=== PATIENT | female | born 1950 | race African-American/Black ===

== ENCOUNTER 2016-08-24 08:10 | Inpatient (IN) | payer OTHER ==
[~2016-08-24] VITALS: Ht 160 cm; Wt 59.9 kg
[~2016-08-24 08:10] MED LIST: AMLO5TAB4; FLUT1DIS3 INH; FURO-151 PO; IBUP-1509 PO; LOSA50TA20 PO; METFORMIN PO; MONT10TA21 PO; QUET100T PO
[2016-08-24] MEDS ORDERED: METHYLPREDNISOLONE SOD SUCC 125 MG/2 ML VIAL IV STA (08:29)
[2016-08-24] MEDS ORDERED: IPRATROPIUM BROMIDE (0.02%) 0.5MG/2.5ML NEB HHN STA (08:29)
[2016-08-24] MEDS ORDERED: ALBUTEROL (0.083%) 2.5MG/3ML NEB HHN STA ×2 (08:29→11:13)
[2016-08-24 08:44] LABS: BASOPHILS % 0.9 % (0.0-2.0); DIFFERENTIAL COMMENT 0; EOSINOPHILS % 3.7 % (0.0-5.0); HEMATOCRIT. 39.1 % (36.0-48.0); HEMOGLOBIN. 12.6 g/dL (12.0-16.0); LYMPHOCYTES % 31.5 % (20.0-50.0); MEAN CORPUSCULAR HEMOGLOBIN 28.3 pg (28.0-32.0); MEAN CORPUSCULAR HGB CONC 32.2 g/dL (31.0-37.0); MEAN CORPUSCULAR VOLUME 88.1 fL (81.0-99.0); MEAN PLATELET VOLUME 9.4 fl (7.4-10.4); MONOCYTES % 9.8 % (2.0-8.0); NEUTROPHILS % 54.1 % (40.0-76.0); PLATELET 244 x1000/uL (130-400); RED BLOOD CELL COUNT 4.44 mill/uL (4.2-5.4); RED CELL DISTRIBUTION WIDTH 14.7 % (11.6-14.6); WHITE BLOOD COUNT 3.5 x1000/uL (4.5-11.0)
[2016-08-24 08:51] LABS: INR 1.1; PROTHROMBIN TIME 11.8 sec
[2016-08-24 08:59] LABS: ALANINE AMINOTRANSFERASE 15 IU/L (13-61); ALBUMIN 3.3 g/dL (3.4-5.0); ANION GAP 12; CALCIUM 9.2 mg/dL (8.5-10.1); CARBON DIOXIDE 27 mEq/L (21-32); CHLORIDE 109 mEq/L (98-107); INDEX HEMOLYSI 1 (1-3); INDEX ICTERIC 1 (1-4); INDEX LIPEMIC 1 (1-3); NT PRO B-TYPE NATRIURETIC PEP 720 pg/mL (5-125); TROPONIN I < 0.02 ng/mL (0.00-0.04); UREA NITROGEN BLOOD 14 mg/dL (7-21); eGFR 55 mL/min (>60)
[2016-08-24 10:58] LABS: CLARITY URINE CLEAR (CLEAR); COLOR URINE YELLOW (YELLOW); GLUCOSE URINE NEGATIVE (NEGATIVE); KETONES URINE TRACE (NEGATIVE); LEUKOCYTE ESTERASE URINE TRACE (NEGATIVE); NITRITE URINE NEGATIVE (NEGATIVE); OCCULT BLOOD URINE NEGATIVE (NEGATIVE); PROTEIN URINE 1+ (NEGATIVE); SPECIFIC GRAVITY URINE 1.017 (1.005-1.030)
[2016-08-24 11:14] LABS: BACTERIA URINE TRACE; SQUAMOUS EPITHELIAL CELL URINE 1+ /lpf (RARE/1+)
[2016-08-24 11:15] LABS: MUCUS URINE 1+ /lpf (< = 2+); RBC URINE 0-2 /hpf (0-2)
[2016-08-24 12:00] VITALS: BP 148/80
[2016-08-24] MEDS ORDERED: CLONIDINE 0.1MG TABLET PO PRN (12:15)
[2016-08-24] MEDS ORDERED: DEXTROSE 50% WATER 50ML SYRINGE IV PRN (14:30)
[2016-08-24] MEDS ORDERED: LORAZEPAM 0.5MG TABLET PO PRN (15:00)
[2016-08-24] MEDS ORDERED: DOCUSATE SODIUM 100MG CAPSULE PO PRN (15:00)
[2016-08-24] MEDS ORDERED: MORPHINE SULFATE 2 MG/ML CPJ (NOT FOR IM USE) IV PRN (15:00)
[2016-08-24] MEDS ORDERED: ONDANSETRON HCL 4MG/2ML VIAL IV PRN (15:00)
[2016-08-24] MEDS ORDERED: MAGNESIUM/ALUMINUM HYDROXIDE/SIMETHICONE 30ML UDC PO PRN (15:00)
[2016-08-24] MEDS ORDERED: NA PHOS,M-B/NA PHOS,DI-BA ENEMA 118ML PR PRN (15:00)
[2016-08-24] MEDS ORDERED: IPRATROPIUM/ALBUTEROL 0.5-3(2.5)MG/3ML NEB INH PRN (15:00)
[2016-08-24] MEDS: BLOOD SUGAR DIAGNOSTIC STRIP TEST SCH ×3 (15:12→21:19)
[2016-08-24 15:13] LABS: CREATINE KINASE 86 IU/L (26-192); INDEX HEMOLYSI 1 (1-3); TROPONIN I < 0.02 ng/mL (0.00-0.04)
[2016-08-24] MEDS: FUROSEMIDE 40MG/4ML VIAL IV SCH (15:24)
[2016-08-24] MEDS: METHYLPREDNISOLONE SOD SUCC 40 MG/ML VIAL IV SCH ×2 (15:24→21:07)
[2016-08-24] MEDS: AMLODIPINE 5MG TABLET PO SCH (15:24)
[2016-08-24] MEDS: LOSARTAN POTASSIUM 50 MG TABLET PO SCH (15:25)
[2016-08-24] MEDS: INSULIN LISPRO 100 UNITS/ML SUBCUT SCH ×3 (15:26→21:19)
[2016-08-24 16:00] VITALS: BP 140/93
[2016-08-24 17:01] LABS: CLARITY URINE CLEAR (CLEAR); COLOR URINE YELLOW (YELLOW); GLUCOSE URINE 2+ (NEGATIVE); KETONES URINE NEGATIVE (NEGATIVE); LEUKOCYTE ESTERASE URINE NEGATIVE (NEGATIVE); NITRITE URINE NEGATIVE (NEGATIVE); OCCULT BLOOD URINE NEGATIVE (NEGATIVE); PROTEIN URINE 1+ (NEGATIVE); SPECIFIC GRAVITY URINE 1.023 (1.005-1.030); UROBILINOGEN URINE 0.2 E.U./dL (0.2-1.0)
[2016-08-24 17:03] LABS: BACTERIA URINE NONE SEEN; CALCIUM PHOSPHATE CRYSTALS UR NONE SEEN /lpf; RBC URINE NONE SEEN /hpf (0-2); SQUAMOUS EPITHELIAL CELL URINE 1+ /lpf (RARE/1+); WAXY CASTS URINE NONE SEEN /lpf; WBC URINE NONE SEEN /hpf (0-2); YEAST URINE NONE SEEN
[2016-08-24 17:16] LABS: *AMPHETAMINES SCREEN URINE NEGATIVE (NEGATIVE); *BARBITURATES SCREEN URINE NEGATIVE (NEGATIVE); *BENZODIAZEPINES SCREEN URINE NEGATIVE (NEGATIVE); *COCAINE SCREEN URINE PRESUMTIVE POSITIVE (NEGATIVE); CANNABINOID URINE SCREEN PRESUMTIVE POSITIVE (NEGATIVE); ECSTASY MDMA SCREEN URINE NEGATIVE (NEGATIVE); METHADONE URINE SCREEN NEGATIVE (NEGATIVE); OPIATES URINE SCREEN NEGATIVE (NEGATIVE); PHENCYCLIDINE URINE SCREEN NEGATIVE (NEGATIVE)
[2016-08-24 20:00] VITALS: BP 137/94
[2016-08-24] MEDS: IPRATROPIUM/ALBUTEROL 0.5-3(2.5)MG/3ML NEB INH SCH (20:24)
[2016-08-24] MEDS: MONTELUKAST SODIUM 10MG TABLET PO SCH (21:07)
[2016-08-24] MEDS: QUETIAPINE FUMARATE 100MG TABLET PO SCH (21:07)
[2016-08-24] MEDS: DIPHENHYDRAMINE 50MG/ML VIAL IV PRN (21:18)
[2016-08-24 23:22] LABS: CREATINE KINASE 83 IU/L (26-192); INDEX HEMOLYSI 1 (1-3); TROPONIN I < 0.02 ng/mL (0.00-0.04)
[2016-08-25] VITALS: BP 139/93
[2016-08-25] MEDS: IPRATROPIUM/ALBUTEROL 0.5-3(2.5)MG/3ML NEB INH SCH ×7 (00:32→20:01)
[2016-08-25 04:00] VITALS: BP 153/94
[2016-08-25] MEDS: METHYLPREDNISOLONE SOD SUCC 40 MG/ML VIAL IV SCH ×3 (06:00→22:20)
[2016-08-25] MEDS: BLOOD SUGAR DIAGNOSTIC STRIP TEST SCH ×4 (06:08→21:36)
[2016-08-25 06:48] LABS: BASOPHILS % 0.1 % (0.0-2.0); HEMATOCRIT. 34.2 % (36.0-48.0); HEMOGLOBIN. 11.1 g/dL (12.0-16.0); LYMPHOCYTES % 8.8 % (20.0-50.0); MEAN CORPUSCULAR HEMOGLOBIN 28.5 pg (28.0-32.0); MEAN CORPUSCULAR HGB CONC 32.5 g/dL (31.0-37.0); MEAN CORPUSCULAR VOLUME 87.6 fL (81.0-99.0); MEAN PLATELET VOLUME 9.7 fl (7.4-10.4); MONOCYTES % 5.2 % (2.0-8.0); NEUTROPHILS % 85.9 % (40.0-76.0); PLATELET 229 x1000/uL (130-400); RED BLOOD CELL COUNT 3.91 mill/uL (4.2-5.4)
[2016-08-25 07:46] LABS: ALANINE AMINOTRANSFERASE 15 IU/L (13-61); ANION GAP 11; CALCIUM 8.7 mg/dL (8.5-10.1); CARBON DIOXIDE 26 mEq/L (21-32); CHLORIDE 107 mEq/L (98-107); HDL CHOLESTEROL 99 mg/dL (40-59); INDEX HEMOLYSI 1 (1-3); INDEX ICTERIC 1 (1-4); INDEX LIPEMIC 1 (1-3); LDL CHOLESTEROL 56 mg/dL (5-100); T4 FREE 0.97 ng/dL (0.76-1.46); TRIGLYCERIDE 35 mg/dL (0-150); UREA NITROGEN BLOOD 26 mg/dL (7-21); eGFR 50 mL/min (>60)
[2016-08-25 07:48] LABS: T3 FREE 1.88 pg/ml (2.18-3.98)
[2016-08-25 08:00] VITALS: BP 145/104
[2016-08-25] MEDS: FUROSEMIDE 40MG/4ML VIAL IV SCH (08:48)
[2016-08-25] MEDS: LOSARTAN POTASSIUM 50 MG TABLET PO SCH (08:48)
[2016-08-25] MEDS: AMLODIPINE 5MG TABLET PO SCH (08:48)
[2016-08-25 12:00] VITALS: BP 134/84
[2016-08-25] MEDS: INSULIN LISPRO 100 UNITS/ML SUBCUT SCH ×3 (12:34→21:00)
[2016-08-25 13:14] LABS: BG BASE EXCESS 0.7 mmol/L (-2.0-2.0); BG CARBOXYHEMOGLOBIN 0.3 % (0.5-1.5); BG DEOXYHEMOGLOBIN 4.6 % (0.0-5.0); BG FRACTION INSPIRED OXYGEN 21; BG HCO3 ACT 24.7 mmol/L (22.0-26.0); BG METHEMOGLOBIN 0.3 % (0.0-1.5); BG OXYGEN SATURATION 95.4 % (92.0-98.5); BG OXYHEMOGLOBIN 94.8 % (94.0-97.0); BG PCO2 37.4 mmHg (35.0-45.0); BG PH 7.438 (7.350-7.450); BG PO2 76.5 mmHg (75.0-100.0); BG SAMPLE SITE RIGHT BRACHIAL; BG TOTAL HEMOGLOBIN 12.3 g/dL (12.0-18.0); BG VENT MODE ROOM AIR
[2016-08-25 16:00] VITALS: BP 142/91
[2016-08-25 20:00] VITALS: BP 158/91
[2016-08-25] MEDS: BUDESONIDE 0.5MG/2ML NEB HHN SCH (20:01)
[2016-08-25] MEDS: QUETIAPINE FUMARATE 100MG TABLET PO SCH (21:33)
[2016-08-25] MEDS: MONTELUKAST SODIUM 10MG TABLET PO SCH (21:33)
[2016-08-25] MEDS: DIPHENHYDRAMINE 50MG/ML VIAL IV PRN (22:20)
[2016-08-26] VITALS: BP 146/93
[2016-08-26] MEDS: IPRATROPIUM/ALBUTEROL 0.5-3(2.5)MG/3ML NEB INH SCH ×6 (00:24→21:12)
[2016-08-26 03:59] VITALS: BP 153/103
[2016-08-26] MEDS: BUDESONIDE 0.5MG/2ML NEB HHN SCH ×2 (06:00→21:13)
[2016-08-26] MEDS: METHYLPREDNISOLONE SOD SUCC 40 MG/ML VIAL IV SCH ×3 (06:20→22:24)
[2016-08-26] MEDS: BLOOD SUGAR DIAGNOSTIC STRIP TEST SCH ×4 (06:41→20:51)
[2016-08-26] MEDS: INSULIN LISPRO 100 UNITS/ML SUBCUT SCH ×4 (06:41→20:57)
[2016-08-26 08:00] VITALS: BP 145/94
[2016-08-26] MEDS: FUROSEMIDE 40MG/4ML VIAL IV SCH (08:48)
[2016-08-26] MEDS: LOSARTAN POTASSIUM 50 MG TABLET PO SCH ×2 (08:49→20:51)
[2016-08-26] MEDS: AMLODIPINE 5MG TABLET PO SCH (08:49)
[2016-08-26 12:00] VITALS: BP 131/89
[2016-08-26 16:00] VITALS: BP 141/94
[2016-08-26 20:00] VITALS: BP 137/87
[2016-08-26] MEDS: MONTELUKAST SODIUM 10MG TABLET PO SCH (20:51)
[2016-08-26] MEDS: QUETIAPINE FUMARATE 100MG TABLET PO SCH (20:51)
[2016-08-27] VITALS: BP 127/80
[2016-08-27] MEDS: IPRATROPIUM/ALBUTEROL 0.5-3(2.5)MG/3ML NEB INH SCH ×4 (00:23→12:20)
[2016-08-27 04:00] VITALS: BP 148/88
[2016-08-27] MEDS: METHYLPREDNISOLONE SOD SUCC 40 MG/ML VIAL IV SCH ×2 (05:43→13:31)
[2016-08-27] MEDS: BLOOD SUGAR DIAGNOSTIC STRIP TEST SCH ×2 (05:52→13:27)
[2016-08-27] MEDS: INSULIN LISPRO 100 UNITS/ML SUBCUT SCH ×2 (07:06→13:31)
[2016-08-27] MEDS: BUDESONIDE 0.5MG/2ML NEB HHN SCH (07:58)
[2016-08-27 08:00] VITALS: BP 145/96
[2016-08-27] MEDS: FUROSEMIDE 40MG/4ML VIAL IV SCH (09:20)
[2016-08-27] MEDS: LOSARTAN POTASSIUM 50 MG TABLET PO SCH (09:20)
[2016-08-27] MEDS: AMLODIPINE 5MG TABLET PO SCH (09:20)
[2016-08-27 12:00] VITALS: BP 145/94
[2016-08-27 14:28] VITALS: BP 140/88
== END 2016-08-27 15:00 | disposition home or self-care (01) | DRG 140 ==
LOC: ER 08:28 → 7WST 11:46 → SUPCPDRO 12:03
PROVIDERS: ADMIT Internal Medicine; ATTEND Internal Medicine
DX: J44.1 Chronic obstructive pulmonary disease with (acute) exacerbation (principal); J96.20 Acute and chronic respiratory failure, unspecified whether with hypoxia or hypercapnia; I10 Essential (primary) hypertension; F20.0 Paranoid schizophrenia; E11.9 Type 2 diabetes mellitus without complications; Z60.2 Problems related to living alone; F12.90 Cannabis use, unspecified, uncomplicated; T40.5X5A Adverse effect of cocaine, initial encounter; F14.10 Cocaine abuse, uncomplicated; Y92.89 Other specified places as the place of occurrence of the external cause; Z87.891 Personal history of nicotine dependence; Z82.49 Family history of ischemic heart disease and other diseases of the circulatory system
CPT/HCPCS: 36415; 36600; 71010; 80053; 80061; 80305; 81001; 82375; 82550; 82805; 82962; 83880; 84439; 84443; 84481; 84484; 85025; 85610; 87040; 93005; 93970; 94640; 94664; 96374; 99291; J1200; J1815; J1940; J2920; J2930; J7611; J7620; J7626

== ENCOUNTER 2016-10-24 07:05 | Inpatient (IN) | payer OTHER ==
[~2016-10-24] VITALS: Ht 175.3 cm; Wt 79.4 kg
[2016-10-24] MEDS ORDERED: IPRATROPIUM BROMIDE (0.02%) 0.5MG/2.5ML NEB HHN STA (08:17)
[2016-10-24] MEDS ORDERED: ASPIRIN 81MG TABLET PO STA (08:17)
[2016-10-24] MEDS ORDERED: ALBUTEROL (0.083%) 2.5MG/3ML NEB HHN STA (08:17)
[2016-10-24] MEDS ORDERED: METHYLPREDNISOLONE SOD SUCC 125 MG/2 ML VIAL IV STA (08:17)
[2016-10-24] MEDS ORDERED: NITROGLYCERIN 0.4MG TABLET SL SL PRN (08:30)
[2016-10-24] MEDS ORDERED: ALBUTEROL (0.5%) 2.5MG/0.5ML NEB HHN ONE (08:35)
[2016-10-24] MEDS ORDERED: ALBUTEROL (0.083%) 2.5MG/3ML NEB ONE (08:35)
[2016-10-24] MEDS ORDERED: IPRATROPIUM BROMIDE (0.02%) 0.5MG/2.5ML NEB ONE (08:36)
[2016-10-24] MEDS ORDERED: LEVOFLOXACIN 750MG PREMIX 150 ML IV ONE (08:45)
[2016-10-24 08:48] LABS: INR 1.1; PARTIAL THROMBOPLASTIN TIME 25.7 sec (24.0-34.0)
[2016-10-24 08:52] LABS: BASOPHILS % 0.8 % (0.0-2.0); EOSINOPHILS % 2.5 % (0.0-5.0); HEMOGLOBIN. 10.1 g/dL (12.0-16.0); LYMPHOCYTES % 28.5 % (20.0-50.0); MEAN CORPUSCULAR HEMOGLOBIN 28.6 pg (28.0-32.0); MEAN CORPUSCULAR VOLUME 88.1 fL (81.0-99.0); MEAN PLATELET VOLUME 9.8 fl (7.4-10.4); MONOCYTES % 9.6 % (2.0-8.0); NEUTROPHILS % 58.6 % (40.0-76.0); PLATELET 221 x1000/uL (130-400); RED BLOOD CELL COUNT 3.52 mill/uL (4.2-5.4); RED CELL DISTRIBUTION WIDTH 15.5 % (11.6-14.6)
[2016-10-24 08:54] LABS: CARBON DIOXIDE 25 mEq/L (21-32); CHLORIDE 108 mEq/L (98-107)
[2016-10-24 08:57] LABS: TROPONIN I < 0.02 ng/mL (0.00-0.04)
[2016-10-24 12:50] VITALS: BP 138/91
[2016-10-24] MEDS ORDERED: DEXTROSE 50% WATER 50ML SYRINGE IV PRN (13:45)
[2016-10-24] MEDS ORDERED: FLUTICASONE INH PRN (13:45)
[2016-10-24] MEDS ORDERED: IBUPROFEN 600MG TABLET PO PRN (13:45)
[2016-10-24] MEDS ORDERED: IPRATROPIUM/ALBUTEROL 0.5-3(2.5)MG/3ML NEB HHN PRN (13:45)
[2016-10-24] MEDS ORDERED: SALMETEROL INH PRN (13:45)
[2016-10-24 13:49] VITALS: BP 138/91
[2016-10-24] MEDS ORDERED: AMLODIPINE 5MG TABLET PO SCH (14:30)
[2016-10-24] MEDS ORDERED: FUROSEMIDE 40MG/4ML VIAL IVP SCH (14:30)
[2016-10-24] MEDS: METHYLPREDNISOLONE SOD SUCC 40 MG/ML VIAL IV SCH ×2 (14:45→21:25)
[2016-10-24] MEDS: ENOXAPARIN 40MG/0.4ML SYR SUBCUT SCH (14:46)
[2016-10-24] MEDS: LOSARTAN POTASSIUM 50 MG TABLET PO SCH (14:46)
[2016-10-24] MEDS ORDERED: CLONIDINE 0.2MG TABLET PO PRN ×2 (15:14→15:15)
[2016-10-24] MEDS: IPRATROPIUM/ALBUTEROL 0.5-3(2.5)MG/3ML NEB HHN SCH ×2 (15:26→20:17)
[2016-10-24] MEDS: BUDESONIDE 0.5MG/2ML NEB HHN SCH ×2 (15:27→20:17)
[2016-10-24 16:11] VITALS: BP 147/85
[2016-10-24] MEDS ORDERED: METFORMIN 1000 MG PO SCH (17:00)
[2016-10-24] MEDS: BLOOD SUGAR DIAGNOSTIC STRIP TEST SCH ×2 (17:02→21:34)
[2016-10-24 17:29] LABS: *AMPHETAMINES SCREEN URINE NEGATIVE (NEGATIVE); *BARBITURATES SCREEN URINE NEGATIVE (NEGATIVE); *BENZODIAZEPINES SCREEN URINE NEGATIVE (NEGATIVE); *COCAINE SCREEN URINE PRESUMTIVE POSITIVE (NEGATIVE); CANNABINOID URINE SCREEN NEGATIVE (NEGATIVE); METHADONE URINE SCREEN NEGATIVE (NEGATIVE); OPIATES URINE SCREEN NEGATIVE (NEGATIVE); PHENCYCLIDINE URINE SCREEN NEGATIVE (NEGATIVE)
[2016-10-24] MEDS: METFORMIN HCL 500MG TABLET PO SCH (17:35)
[2016-10-24] MEDS: INSULIN LISPRO 100 UNITS/ML SUBCUT SCH ×2 (17:36→21:26)
[2016-10-24 20:00] VITALS: BP_SYST 161; BP_SYST 212; BP_DIAS 100; BP_DIAS 129
[2016-10-24] MEDS: QUETIAPINE FUMARATE 100MG TABLET PO SCH (21:25)
[2016-10-24] MEDS: AMLODIPINE 5MG TABLET PO SCH (21:25)
[2016-10-24] MEDS: CLONIDINE 0.1MG TABLET PO PRN (21:25)
[2016-10-24] MEDS: MONTELUKAST SODIUM 10MG TABLET PO SCH (21:37)
[2016-10-25] VITALS: BP 137/94
[2016-10-25 04:00] VITALS: BP 137/84
[2016-10-25] MEDS: METHYLPREDNISOLONE SOD SUCC 40 MG/ML VIAL IV SCH ×2 (06:00→13:45)
[2016-10-25 08:00] VITALS: BP 132/82
[2016-10-25] MEDS: BLOOD SUGAR DIAGNOSTIC STRIP TEST SCH ×4 (08:01→21:00)
[2016-10-25] MEDS: INSULIN LISPRO 100 UNITS/ML SUBCUT SCH ×4 (08:02→21:00)
[2016-10-25] MEDS: BUDESONIDE 0.5MG/2ML NEB HHN SCH ×2 (08:26→20:49)
[2016-10-25] MEDS: IPRATROPIUM/ALBUTEROL 0.5-3(2.5)MG/3ML NEB HHN SCH ×3 (08:26→20:49)
[2016-10-25] MEDS: ENOXAPARIN 40MG/0.4ML SYR SUBCUT SCH (08:35)
[2016-10-25] MEDS: LOSARTAN POTASSIUM 50 MG TABLET PO SCH (08:35)
[2016-10-25] MEDS: METFORMIN HCL 500MG TABLET PO SCH ×2 (08:35→17:57)
[2016-10-25] MEDS: AMLODIPINE 5MG TABLET PO SCH ×2 (08:36→22:57)
[2016-10-25] MEDS ORDERED: FUROSEMIDE 40MG TABLET PO SCH (09:00)
[2016-10-25] MEDS: LEVOFLOXACIN 500MG PREMIX 100 ML IV SCH (09:14)
[2016-10-25 09:23] LABS: HEMATOCRIT. 32.8 % (36.0-48.0); HEMOGLOBIN. 10.6 g/dL (12.0-16.0); MEAN CORPUSCULAR HEMOGLOBIN 28.6 pg (28.0-32.0); MEAN CORPUSCULAR VOLUME 88.4 fL (81.0-99.0); PLATELET 216 x1000/uL (130-400); RED BLOOD CELL COUNT 3.71 mill/uL (4.2-5.4); RED CELL DISTRIBUTION WIDTH 15.3 % (11.6-14.6)
[2016-10-25 09:53] LABS: CARBON DIOXIDE 25 mEq/L (21-32); CHLORIDE 106 mEq/L (98-107); CREATINE KINASE 124 IU/L (26-192); CREATINE KINASE MB FRACTION 1.4 ng/mL (0.5-3.6); TROPONIN I < 0.02 ng/mL (0.00-0.04)
[2016-10-25 10:06] LABS: PLATELET ESTIMATE NORMAL
[2016-10-25 12:00] VITALS: BP 126/81
[2016-10-25 16:00] VITALS: BP 158/97
[2016-10-25 20:00] VITALS: BP 157/104
[2016-10-25] MEDS: QUETIAPINE FUMARATE 100MG TABLET PO SCH (22:56)
[2016-10-25] MEDS: MONTELUKAST SODIUM 10MG TABLET PO SCH (22:56)
[2016-10-26] VITALS: BP 155/101
[2016-10-26] MEDS: IPRATROPIUM/ALBUTEROL 0.5-3(2.5)MG/3ML NEB HHN SCH ×4 (01:05→21:40)
[2016-10-26] MEDS: METHYLPREDNISOLONE SOD SUCC 40 MG/ML VIAL IV SCH ×4 (01:17→21:05)
[2016-10-26 04:00] VITALS: BP 160/112
[2016-10-26 08:00] VITALS: BP 146/110
[2016-10-26] MEDS: LEVOFLOXACIN 500MG PREMIX 100 ML IV SCH (08:00)
[2016-10-26] MEDS: BLOOD SUGAR DIAGNOSTIC STRIP TEST SCH ×4 (08:11→21:54)
[2016-10-26] MEDS: METFORMIN HCL 500MG TABLET PO SCH ×2 (08:28→17:39)
[2016-10-26] MEDS: INSULIN LISPRO 100 UNITS/ML SUBCUT SCH ×4 (08:28→21:00)
[2016-10-26] MEDS: ENOXAPARIN 40MG/0.4ML SYR SUBCUT SCH (08:28)
[2016-10-26] MEDS: LOSARTAN POTASSIUM 50 MG TABLET PO SCH ×2 (08:31→17:39)
[2016-10-26] MEDS: AMLODIPINE 5MG TABLET PO SCH ×2 (08:32→21:03)
[2016-10-26] MEDS: BUDESONIDE 0.5MG/2ML NEB HHN SCH (09:29)
[2016-10-26 12:00] VITALS: BP 150/101
[2016-10-26 16:00] VITALS: BP 143/93
[2016-10-26 19:48] VITALS: BP 156/107
[2016-10-26] MEDS: MONTELUKAST SODIUM 10MG TABLET PO SCH (21:03)
[2016-10-26] MEDS: FUROSEMIDE 20MG TABLET PO SCH (21:03)
[2016-10-26] MEDS: QUETIAPINE FUMARATE 100MG TABLET PO SCH (21:03)
[2016-10-27] VITALS (7 sets, daily range): BP systolic 155–188; BP diastolic 93–119
[2016-10-27] MEDS: BUDESONIDE 0.5MG/2ML NEB HHN SCH ×3 (02:42→21:17)
[2016-10-27] MEDS: IPRATROPIUM/ALBUTEROL 0.5-3(2.5)MG/3ML NEB HHN SCH ×4 (02:42→21:17)
[2016-10-27] MEDS: METHYLPREDNISOLONE SOD SUCC 40 MG/ML VIAL IV SCH ×3 (05:49→21:07)
[2016-10-27] MEDS: CLONIDINE 0.1MG TABLET PO PRN (06:01)
[2016-10-27] MEDS: BLOOD SUGAR DIAGNOSTIC STRIP TEST SCH ×4 (07:06→21:07)
[2016-10-27] MEDS: INSULIN LISPRO 100 UNITS/ML SUBCUT SCH ×4 (08:10→21:00)
[2016-10-27] MEDS: LEVOFLOXACIN 500MG PREMIX 100 ML IV SCH (08:22)
[2016-10-27] MEDS: FUROSEMIDE 20MG TABLET PO SCH ×2 (08:28→21:04)
[2016-10-27] MEDS: LOSARTAN POTASSIUM 50 MG TABLET PO SCH (08:28)
[2016-10-27] MEDS: AMLODIPINE 5MG TABLET PO SCH (08:29)
[2016-10-27] MEDS: ENOXAPARIN 40MG/0.4ML SYR SUBCUT SCH (08:29)
[2016-10-27] MEDS: METFORMIN HCL 500MG TABLET PO SCH ×2 (08:30→17:18)
[2016-10-27] MEDS: NIFEDIPINE XL 60MG TAB PO SCH (17:18)
[2016-10-27] MEDS: CLONIDINE 0.2MG TABLET PO SCH (21:04)
[2016-10-27] MEDS: QUETIAPINE FUMARATE 100MG TABLET PO SCH (21:04)
[2016-10-27] MEDS: MONTELUKAST SODIUM 10MG TABLET PO SCH (21:06)
[2016-10-28] VITALS: BP 117/84
[2016-10-28] MEDS: IPRATROPIUM/ALBUTEROL 0.5-3(2.5)MG/3ML NEB HHN SCH ×2 (01:11→09:30)
[2016-10-28 04:00] VITALS: BP 110/71
[2016-10-28] MEDS: CLONIDINE 0.2MG TABLET PO SCH (06:00)
[2016-10-28] MEDS: METHYLPREDNISOLONE SOD SUCC 40 MG/ML VIAL IV SCH (06:03)
[2016-10-28] MEDS: BLOOD SUGAR DIAGNOSTIC STRIP TEST SCH (06:03)
[2016-10-28] MEDS: INSULIN LISPRO 100 UNITS/ML SUBCUT SCH (06:03)
[2016-10-28 08:00] VITALS: BP 118/78
[2016-10-28] MEDS: METFORMIN HCL 500MG TABLET PO SCH (08:32)
[2016-10-28] MEDS: NIFEDIPINE XL 60MG TAB PO SCH (08:33)
[2016-10-28] MEDS: FUROSEMIDE 20MG TABLET PO SCH (08:34)
[2016-10-28] MEDS: ENOXAPARIN 40MG/0.4ML SYR SUBCUT SCH (08:34)
[2016-10-28] MEDS: LEVOFLOXACIN 500MG PREMIX 100 ML IV SCH (08:36)
[2016-10-28] MEDS: BUDESONIDE 0.5MG/2ML NEB HHN SCH (09:30)
[2016-10-28 10:54] VITALS: BP 118/78
== END 2016-10-28 11:53 | disposition home or self-care (01) | DRG 140 ==
LOC: EDBEDREQ 10:40 → ER 11:15 → 7WST 11:20 → ENRESERV 11:37
PROVIDERS: ADMIT Internal Medicine; ATTEND Internal Medicine
DX: J44.0 Chronic obstructive pulmonary disease with (acute) lower respiratory infection (principal); I10 Essential (primary) hypertension; J44.1 Chronic obstructive pulmonary disease with (acute) exacerbation; E11.9 Type 2 diabetes mellitus without complications; J20.9 Acute bronchitis, unspecified; F10.10 Alcohol abuse, uncomplicated; G40.909 Epilepsy, unspecified, not intractable, without status epilepticus; F14.10 Cocaine abuse, uncomplicated; F12.10 Cannabis abuse, uncomplicated; F17.200 Nicotine dependence, unspecified, uncomplicated; R07.89 Other chest pain
CPT/HCPCS: 36415; 71010; 80048; 80053; 80305; 82550; 82553; 82962; 83605; 83735; 83880; 84443; 84484; 85007; 85025; 85027; 85379; 85610; 85730; 87040; 93005; 93306; 94640; 94664; 96365; 96366; 96375; 99285; J1650; J1815; J1940; J1956; J2920; J2930; J7050; J7611; J7620; J7626

== ENCOUNTER 2017-01-21 23:30 | Inpatient (IN) | payer OTHER ==
[~2017-01-21] VITALS: Ht 175.3 cm; Wt 75.7 kg
[~2017-01-21 23:30] MED LIST changes: -IBUP-1509 PO; +IBUP-2028 PO
[2017-01-22] MEDS ORDERED: IPRATROPIUM BROMIDE (0.02%) 0.5MG/2.5ML NEB HHN STA (01:31)
[2017-01-22] MEDS ORDERED: ALBUTEROL (0.083%) 2.5MG/3ML NEB HHN STA (01:31)
[2017-01-22] MEDS ORDERED: SODIUM CHLORIDE 0.9% 1,000 ML IV ONE (01:31)
[2017-01-22] MEDS ORDERED: METHYLPREDNISOLONE SOD SUCC 125 MG/2 ML VIAL IV STA (01:31)
[2017-01-22 02:00] LABS: BASOPHILS % 0.9 % (0.0-2.0); EOSINOPHILS % 1.8 % (0.0-5.0); HEMATOCRIT. 35.1 % (36.0-48.0); HEMOGLOBIN. 11.4 g/dL (12.0-16.0); LYMPHOCYTES % 21.3 % (20.0-50.0); MEAN CORPUSCULAR HEMOGLOBIN 28.1 pg (28.0-32.0); MEAN CORPUSCULAR VOLUME 86.7 fL (81.0-99.0); MEAN PLATELET VOLUME 9.9 fl (7.4-10.4); MONOCYTES % 9.4 % (2.0-8.0); NEUTROPHILS % 66.6 % (40.0-76.0); PLATELET 191 x1000/uL (130-400); RED BLOOD CELL COUNT 4.05 mill/uL (4.2-5.4); RED CELL DISTRIBUTION WIDTH 16.4 % (11.6-14.6)
[2017-01-22] MEDS ORDERED: SODIUM CHLORIDE 0.9% 1,000 ML IV SCH (02:18)
[2017-01-22 02:27] LABS: CARBON DIOXIDE 28 mEq/L (21-32); CHLORIDE 104 mEq/L (98-107); TROPONIN I < 0.02 ng/mL (0.00-0.04)
[2017-01-22] MEDS ORDERED: ACETAMINOPHEN 325MG TABLET PO PRN (02:30)
[2017-01-22 16:08] VITALS: BP 160/102
[2017-01-22 16:40] VITALS: BP 160/102
[2017-01-22] MEDS ORDERED: TRAMADOL 50MG TABLET PO PRN (17:45)
[2017-01-22] MEDS ORDERED: IPRATROPIUM/ALBUTEROL 0.5-3(2.5)MG/3ML NEB HHN PRN (17:45)
[2017-01-22] MEDS ORDERED: DEXTROSE 50% WATER 50ML SYRINGE IV PRN (18:00)
[2017-01-22] MEDS: METHYLPREDNISOLONE SOD SUCC 40 MG/ML VIAL IV SCH (19:11)
[2017-01-22] MEDS: AMLODIPINE 10MG TABLET PO SCH (19:11)
[2017-01-22 19:50] VITALS: BP 124/96
[2017-01-22] MEDS: INSULIN LISPRO 100 UNITS/ML SUBCUT SCH (21:00)
[2017-01-22] MEDS: BLOOD SUGAR DIAGNOSTIC STRIP TEST SCH (21:12)
[2017-01-22] MEDS: HYDRALAZINE HCL 25MG TABLET PO SCH (21:18)
[2017-01-22] MEDS: GUAIFENESIN-DM 200MG-20MG/10ML UDC PO PRN (21:18)
[2017-01-22] MEDS: IPRATROPIUM/ALBUTEROL 0.5-3(2.5)MG/3ML NEB HHN SCH (21:25)
[2017-01-23] VITALS (7 sets, daily range): BP systolic 98–188; BP diastolic 76–145
[2017-01-23] MEDS: CLONIDINE 0.1MG TABLET PO PRN ×2 (00:52→06:21)
[2017-01-23] MEDS: IPRATROPIUM/ALBUTEROL 0.5-3(2.5)MG/3ML NEB HHN SCH ×4 (01:01→20:00)
[2017-01-23] MEDS: METHYLPREDNISOLONE SOD SUCC 40 MG/ML VIAL IV SCH ×3 (02:45→17:23)
[2017-01-23] MEDS: BLOOD SUGAR DIAGNOSTIC STRIP TEST SCH ×4 (06:20→21:10)
[2017-01-23] MEDS: INSULIN LISPRO 100 UNITS/ML SUBCUT SCH ×4 (06:21→21:23)
[2017-01-23] MEDS: HYDRALAZINE HCL 25MG TABLET PO SCH ×3 (06:22→21:20)
[2017-01-23] MEDS ORDERED: INFLUENZA VIRUS VACCINE 0.5ML SYR IM ONE (08:00)
[2017-01-23] MEDS ORDERED: PNEUMOCOCCAL 23-VAL P-SAC VAC 0.5 ML IM ONE (08:00)
[2017-01-23 08:21] LABS: HEMATOCRIT. 35.8 % (36.0-48.0); HEMOGLOBIN. 11.8 g/dL (12.0-16.0); MEAN CORPUSCULAR HEMOGLOBIN 28.1 pg (28.0-32.0); MEAN CORPUSCULAR VOLUME 85.7 fL (81.0-99.0); PLATELET 199 x1000/uL (130-400); RED BLOOD CELL COUNT 4.18 mill/uL (4.2-5.4); RED CELL DISTRIBUTION WIDTH 16.6 % (11.6-14.6)
[2017-01-23 09:01] LABS: CARBON DIOXIDE 25 mEq/L (21-32); CHLORIDE 108 mEq/L (98-107)
[2017-01-23] MEDS: AMLODIPINE 10MG TABLET PO SCH (10:15)
[2017-01-23] MEDS: ENOXAPARIN 40MG/0.4ML SYR SUBCUT SCH (10:19)
[2017-01-23] MEDS: GUAIFENESIN-DM 200MG-20MG/10ML UDC PO PRN ×2 (11:46→21:20)
[2017-01-23 12:03] LABS: PLATELET ESTIMATE NORMAL
[2017-01-24] VITALS: BP 129/73
[2017-01-24] MEDS: IPRATROPIUM/ALBUTEROL 0.5-3(2.5)MG/3ML NEB HHN SCH ×4 (00:17→20:04)
[2017-01-24] MEDS: METHYLPREDNISOLONE SOD SUCC 40 MG/ML VIAL IV SCH ×3 (02:52→18:26)
[2017-01-24] MEDS: GUAIFENESIN-DM 200MG-20MG/10ML UDC PO PRN ×3 (04:05→21:00)
[2017-01-24 04:15] VITALS: BP 135/86
[2017-01-24] MEDS: BLOOD SUGAR DIAGNOSTIC STRIP TEST SCH ×4 (06:16→21:00)
[2017-01-24] MEDS: HYDRALAZINE HCL 25MG TABLET PO SCH ×3 (06:16→21:00)
[2017-01-24] MEDS: INSULIN LISPRO 100 UNITS/ML SUBCUT SCH ×4 (06:17→21:00)
[2017-01-24 08:00] VITALS: BP 154/86
[2017-01-24] MEDS: AMLODIPINE 10MG TABLET PO SCH (10:24)
[2017-01-24] MEDS: ENOXAPARIN 40MG/0.4ML SYR SUBCUT SCH (10:25)
[2017-01-24 11:36] VITALS: BP_SYST 143; BP_SYST 160; BP_DIAS 77; BP_DIAS 94
[2017-01-24 16:00] VITALS: BP 161/96
[2017-01-24 20:00] VITALS: BP 165/97
[2017-01-25] VITALS: BP 154/98
[2017-01-25] MEDS: METHYLPREDNISOLONE SOD SUCC 40 MG/ML VIAL IV SCH ×3 (01:16→18:00)
[2017-01-25] MEDS: CLONIDINE 0.1MG TABLET PO PRN (01:17)
[2017-01-25] MEDS: IPRATROPIUM/ALBUTEROL 0.5-3(2.5)MG/3ML NEB HHN SCH ×3 (02:15→16:28)
[2017-01-25 04:00] VITALS: BP 164/98
[2017-01-25] MEDS: HYDRALAZINE HCL 25MG TABLET PO SCH ×2 (06:21→15:05)
[2017-01-25] MEDS: INSULIN LISPRO 100 UNITS/ML SUBCUT SCH ×3 (06:23→17:19)
[2017-01-25] MEDS: BLOOD SUGAR DIAGNOSTIC STRIP TEST SCH ×3 (06:23→16:45)
[2017-01-25 08:00] VITALS: BP 164/93
[2017-01-25] MEDS: ENOXAPARIN 40MG/0.4ML SYR SUBCUT SCH (09:54)
[2017-01-25] MEDS: AMLODIPINE 10MG TABLET PO SCH (09:54)
[2017-01-25 12:00] VITALS: BP_SYST 162; BP_SYST 168; BP_DIAS 91; BP_DIAS 93
[2017-01-25] MEDS: GUAIFENESIN-DM 200MG-20MG/10ML UDC PO PRN (15:04)
[2017-01-25 15:49] VITALS: BP 164/94
== END 2017-01-25 21:15 | disposition home or self-care (01) | DRG 140 ==
LOC: ER 23:30 → 5WST 01-22 02:20 → EDBEDREQ 01-22 02:24 → ENRESERV 01-22 13:48
PROVIDERS: ADMIT Hospitalist; ATTEND Hospitalist
DX: J44.1 Chronic obstructive pulmonary disease with (acute) exacerbation (principal); I10 Essential (primary) hypertension; E11.9 Type 2 diabetes mellitus without complications; F17.200 Nicotine dependence, unspecified, uncomplicated; G40.909 Epilepsy, unspecified, not intractable, without status epilepticus; F14.10 Cocaine abuse, uncomplicated; Z88.8 Allergy status to other drugs, medicaments and biological substances; Z79.84 Long term (current) use of oral hypoglycemic drugs; Z79.899 Other long term (current) drug therapy; Z72.89 Other problems related to lifestyle
CPT/HCPCS: 36415; 71010; 80048; 80053; 82962; 83605; 83880; 84484; 85025; 87040; 90686; 90732; 93005; 93970; 94640; 96361; 96374; 99285; J1650; J1815; J2920; J2930; J7030; J7040; J7611; J7620

== ENCOUNTER 2017-10-08 10:20 | Emergency (ER) | payer OTHER ==
[~2017-10-08] VITALS: Ht 172.7 cm; Wt 79.0 kg
[~2017-10-08 10:20] MED LIST changes: -AMLO5TAB4; +AMLO5TAB4 PO; +ATOR10TA69 PO; +DIVA500T PO; -FLUT1DIS3 INH; -IBUP-2028 PO; -METFORMIN PO
[2017-10-08] MEDS ORDERED: IPRATROPIUM/ALBUTEROL 0.5-3(2.5)MG/3ML NEB HHN ONE (11:00)
[2017-10-08 11:24] LABS: BG BASE EXCESS -1.7 mmol/L (-2.0-2.0); BG CARBOXYHEMOGLOBIN 3.7 % (0.5-1.5); BG DEOXYHEMOGLOBIN 3.2 % (0.0-5.0); BG FRACTION INSPIRED OXYGEN 21; BG HCO3 ACT 22.7 mmol/L (22.0-26.0); BG METHEMOGLOBIN 0.1 % (0.0-1.5); BG OXYGEN SATURATION 96.7 % (92.0-98.5); BG PCO2 37.5 mmHg (35.0-45.0); BG PO2 86.5 mmHg (75.0-100.0); BG SAMPLE SITE RIGHT BRACHIAL; BG TOTAL HEMOGLOBIN 12.4 g/dL (12.0-18.0); BG VENT MODE ROOM AIR
[2017-10-08 11:35] LABS: BASOPHILS % 1.3 % (0.0-2.0); EOSINOPHILS % 1.9 % (0.0-5.0); HEMATOCRIT. 38.3 % (36.0-48.0); HEMOGLOBIN. 12.2 g/dL (12.0-16.0); LYMPHOCYTES % 33.9 % (20.0-50.0); MEAN CORPUSCULAR HEMOGLOBIN 27.4 pg (28.0-32.0); MEAN CORPUSCULAR VOLUME 86.1 fL (81.0-99.0); MEAN PLATELET VOLUME 10.4 fl (7.4-10.4); MONOCYTES % 11.5 % (2.0-8.0); NEUTROPHILS % 51.4 % (40.0-76.0); PLATELET 195 x1000/uL (130-400); RED BLOOD CELL COUNT 4.45 mill/uL (4.2-5.4); RED CELL DISTRIBUTION WIDTH 15.3 % (11.6-14.6)
[2017-10-08 11:41] LABS: CHLORIDE 108 mEq/L (98-107)
[2017-10-08 11:43] LABS: INR 1.3; PROTHROMBIN TIME 13.1 sec (9.4-11.6)
[2017-10-08 13:31] LABS: CLARITY URINE CLEAR (CLEAR); COLOR URINE YELLOW (YELLOW); KETONES URINE NEGATIVE (NEGATIVE); LEUKOCYTE ESTERASE URINE NEGATIVE (NEGATIVE); NITRITE URINE NEGATIVE (NEGATIVE); OCCULT BLOOD URINE NEGATIVE (NEGATIVE); PROTEIN URINE NEGATIVE (NEGATIVE); SPECIFIC GRAVITY URINE 1.016 (1.005-1.030); UROBILINOGEN URINE 0.2 E.U./dL (0.2-1.0)
[2017-10-08 13:47] LABS: *AMPHETAMINES SCREEN URINE NEGATIVE (NEGATIVE); *BARBITURATES SCREEN URINE NEGATIVE (NEGATIVE); *BENZODIAZEPINES SCREEN URINE NEGATIVE (NEGATIVE); *COCAINE SCREEN URINE PRESUMTIVE POSITIVE (NEGATIVE); CANNABINOID URINE SCREEN PRESUMTIVE POSITIVE (NEGATIVE); METHADONE URINE SCREEN NEGATIVE (NEGATIVE); OPIATES URINE SCREEN NEGATIVE (NEGATIVE); PHENCYCLIDINE URINE SCREEN NEGATIVE (NEGATIVE)
[2017-10-08 17:07] VITALS: BP 128/91
== END 2017-10-08 17:12 | disposition home or self-care (01) ==
LOC: ER 10:28
DX: F14.10 Cocaine abuse, uncomplicated (principal); F12.10 Cannabis abuse, uncomplicated; R05 Cough; R06.02 Shortness of breath; I10 Essential (primary) hypertension; E86.0 Dehydration; R06.2 Wheezing; E11.21 Type 2 diabetes mellitus with diabetic nephropathy; N17.0 Acute kidney failure with tubular necrosis; D72.819 Decreased white blood cell count, unspecified; D72.821 Monocytosis (symptomatic); E87.8 Other disorders of electrolyte and fluid balance, not elsewhere classified; E11.65 Type 2 diabetes mellitus with hyperglycemia; I11.0 Hypertensive heart disease with heart failure; I50.9 Heart failure, unspecified; R79.89 Other specified abnormal findings of blood chemistry; J44.9 Chronic obstructive pulmonary disease, unspecified; Z88.8 Allergy status to other drugs, medicaments and biological substances; Z87.891 Personal history of nicotine dependence
CPT/HCPCS: 36415; 36600; 71250; 80053; 80305; 81003; 82375; 82805; 83036; 83880; 84484; 85025; 85610; 87040; 87086; 93005; 94640; 99285; J7620; Z7610

== ENCOUNTER 2018-04-24 12:58 | Inpatient (IN) | payer OTHER ==
[~2018-04-24] VITALS: Ht 176.5 cm; Wt 88.0 kg
[~2018-04-24 12:58] MED LIST changes: +DIVA-75 PO; -DIVA500T PO; +METF-416 PO
[2018-04-24] MEDS ORDERED: METHYLPREDNISOLONE SOD SUCC 125 MG/2 ML VIAL IV STA (13:27)
[2018-04-24] MEDS ORDERED: LEVOFLOXACIN 750MG PREMIX 150 ML IV ONE (13:30)
[2018-04-24] MEDS ORDERED: ASPIRIN 81MG TABLET PO ONE (13:30)
[2018-04-24] MEDS ORDERED: IPRATROPIUM/ALBUTEROL 0.5-3(2.5)MG/3ML NEB HHN ONE (13:30)
[2018-04-24] MEDS ORDERED: MAGNESIUM 2 G PREMIX 50 ML IV ONE (13:30)
[2018-04-24 14:10] LABS: BG BASE EXCESS 0.7 mmol/L (-2.0-2.0); BG CARBOXYHEMOGLOBIN 2.1 % (0.5-1.5); BG DEOXYHEMOGLOBIN 1.8 % (0.0-5.0); BG FRACTION INSPIRED OXYGEN 36; BG OXYGEN SATURATION 98.2 % (92.0-98.5); BG OXYHEMOGLOBIN 96.1 % (94.0-97.0); BG PH 7.389 (7.350-7.450); BG PO2 111.9 mmHg (75.0-100.0); BG SAMPLE SITE RIGHT BRACHIAL; BG TOTAL HEMOGLOBIN 12.4 g/dL (12.0-18.0); BG VENT MODE NASAL CANNULA
[2018-04-24 14:22] LABS: BASOPHILS % 1.1 % (0.0-2.0); EOSINOPHILS % 1.8 % (0.0-5.0); HEMATOCRIT. 39.6 % (36.0-48.0); HEMOGLOBIN. 12.5 g/dL (12.0-16.0); LYMPHOCYTES % 30.5 % (20.0-50.0); MEAN CORPUSCULAR HEMOGLOBIN 27.7 pg (28.0-32.0); MEAN CORPUSCULAR VOLUME 88.2 fL (81.0-99.0); MEAN PLATELET VOLUME 10.4 fl (7.4-10.4); MONOCYTES % 8.4 % (2.0-8.0); NEUTROPHILS % 58.2 % (40.0-76.0); PLATELET 227 x1000/uL (130-400); RED BLOOD CELL COUNT 4.49 mill/uL (4.2-5.4); RED CELL DISTRIBUTION WIDTH 16.1 % (11.6-14.6)
[2018-04-24 14:27] LABS: CHLORIDE 106 mEq/L (98-107)
[2018-04-24 14:28] LABS: INR 1.1; PARTIAL THROMBOPLASTIN TIME 27.3 sec (23.4-31.0); PROTHROMBIN TIME 10.9 sec (9.1-11.1)
[2018-04-24 14:33] LABS: ETHANOL BLOOD < 10 mg/dL
[2018-04-24 15:06] LABS: CLARITY URINE CLEAR (CLEAR); COLOR URINE YELLOW (YELLOW); KETONES URINE TRACE (NEGATIVE); LEUKOCYTE ESTERASE URINE 2+ (NEGATIVE); NITRITE URINE NEGATIVE (NEGATIVE); OCCULT BLOOD URINE NEGATIVE (NEGATIVE); PROTEIN URINE TRACE (NEGATIVE); SPECIFIC GRAVITY URINE 1.021 (1.005-1.030); UROBILINOGEN URINE 0.2 E.U./dL (0.2-1.0)
[2018-04-24 15:40] LABS: *AMPHETAMINES SCREEN URINE NEGATIVE (NEGATIVE); *BARBITURATES SCREEN URINE NEGATIVE (NEGATIVE); *BENZODIAZEPINES SCREEN URINE NEGATIVE (NEGATIVE); *COCAINE SCREEN URINE PRESUMTIVE POSITIVE (NEGATIVE); METHADONE URINE SCREEN NEGATIVE (NEGATIVE)
[2018-04-24 15:41] LABS: CANNABINOID URINE SCREEN PRESUMTIVE POSITIVE (NEGATIVE); OPIATES URINE SCREEN NEGATIVE (NEGATIVE); PHENCYCLIDINE URINE SCREEN NEGATIVE (NEGATIVE)
[2018-04-24] MEDS ORDERED: HYDRALAZINE 20MG/ML VIAL IV ONE (15:45)
[2018-04-24 20:00] VITALS: BP 144/98
[2018-04-24 22:00] VITALS: BP_SYST 144; BP_SYST 151; BP_DIAS 77; BP_DIAS 98
[2018-04-24] MEDS ORDERED: DIVALPROEX SODIUM 500 MG PO SCH (23:30)
[2018-04-24] MEDS ORDERED: MEDICATION NOT ON FORMULARY EA (Losartan Potassium 50 MG) PO SCH (23:30)
[2018-04-24] MEDS ORDERED: MEDICATION NOT ON FORMULARY EA (Amlodipine Besylate (Norvasc) 5 MG) PO SCH (23:30)
[2018-04-25] VITALS (12 sets, daily range): BP systolic 133–160; BP diastolic 78–112
[2018-04-25] MEDS ORDERED: LEVOFLOXACIN 500MG PREMIX 100 ML IV SCH (00:30)
[2018-04-25] MEDS ORDERED: IPRATROPIUM/ALBUTEROL 0.5-3(2.5)MG/3ML NEB HHN SCH (00:30)
[2018-04-25] MEDS ORDERED: IPRATROPIUM/ALBUTEROL 0.5-3(2.5)MG/3ML NEB HHN PRN (00:30)
[2018-04-25] MEDS ORDERED: ACETAMINOPHEN 325MG TABLET PO PRN (00:30)
[2018-04-25] MEDS ORDERED: DEXTROSE 50% WATER 50ML SYRINGE IV PRN ×2 (00:30)
[2018-04-25] MEDS: LOSARTAN POTASSIUM 50 MG TABLET PO SCH ×2 (01:02→08:47)
[2018-04-25] MEDS: VALPROIC ACID 250MG CAPSULE PO SCH ×2 (01:02→08:47)
[2018-04-25] MEDS: METHYLPREDNISOLONE SOD SUCC 40 MG/ML VIAL IV SCH ×4 (01:02→21:04)
[2018-04-25] MEDS: QUETIAPINE FUMARATE 100MG TABLET PO SCH ×2 (01:02→20:15)
[2018-04-25] MEDS: AMLODIPINE 5MG TABLET PO SCH ×2 (01:09→08:47)
[2018-04-25] MEDS: BLOOD SUGAR DIAGNOSTIC STRIP TEST SCH ×4 (07:40→21:00)
[2018-04-25] MEDS: INSULIN LISPRO 100 UNITS/ML SUBCUT SCH ×4 (08:00→21:00)
[2018-04-25] MEDS: IPRATROPIUM/ALBUTEROL 0.5-3(2.5)MG/3ML NEB HHN SCH ×4 (08:06→20:20)
[2018-04-25] MEDS: METFORMIN HCL 500MG TABLET PO SCH ×2 (08:47→18:18)
[2018-04-25] MEDS: FUROSEMIDE 40MG TABLET PO SCH (08:48)
[2018-04-25] MEDS: ENOXAPARIN 40MG/0.4ML SYR SUBCUT SCH (08:48)
[2018-04-25] MEDS ORDERED: MEDICATION NOT ON FORMULARY EA (Metformin Hcl 1 TAB) PO SCH (09:00)
[2018-04-25] MEDS ORDERED: MEDICATION NOT ON FORMULARY EA (Furosemide (Lasix) 40 MG) PO SCH (09:00)
[2018-04-25] MEDS: LEVOFLOXACIN 250MG PREMIX 50 ML IV SCH (12:46)
[2018-04-25] MEDS: ATORVASTATIN CALCIUM 10MG TABLET PO SCH (20:15)
[2018-04-25] MEDS: MONTELUKAST SODIUM 10MG TABLET PO SCH (20:15)
[2018-04-26] VITALS (12 sets, daily range): BP systolic 92–159; BP diastolic 56–92
[2018-04-26] MEDS: IPRATROPIUM/ALBUTEROL 0.5-3(2.5)MG/3ML NEB HHN SCH ×7 (00:23→23:47)
[2018-04-26] MEDS: METHYLPREDNISOLONE SOD SUCC 40 MG/ML VIAL IV SCH ×3 (05:05→21:19)
[2018-04-26] MEDS: BLOOD SUGAR DIAGNOSTIC STRIP TEST SCH ×4 (07:59→21:00)
[2018-04-26] MEDS: INSULIN LISPRO 100 UNITS/ML SUBCUT SCH ×4 (08:00→21:28)
[2018-04-26] MEDS: ENOXAPARIN 40MG/0.4ML SYR SUBCUT SCH (08:27)
[2018-04-26] MEDS: LOSARTAN POTASSIUM 50 MG TABLET PO SCH (08:28)
[2018-04-26] MEDS: VALPROIC ACID 250MG CAPSULE PO SCH (08:28)
[2018-04-26] MEDS: FUROSEMIDE 40MG TABLET PO SCH (08:28)
[2018-04-26] MEDS: METFORMIN HCL 500MG TABLET PO SCH ×2 (08:28→18:07)
[2018-04-26] MEDS: AMLODIPINE 5MG TABLET PO SCH (08:29)
[2018-04-26] MEDS: LEVOFLOXACIN 250MG PREMIX 50 ML IV SCH (13:13)
[2018-04-26] MEDS: ATORVASTATIN CALCIUM 10MG TABLET PO SCH (21:18)
[2018-04-26] MEDS: QUETIAPINE FUMARATE 100MG TABLET PO SCH (21:19)
[2018-04-26] MEDS: MONTELUKAST SODIUM 10MG TABLET PO SCH (21:19)
[2018-04-27] VITALS: BP 110/66
[2018-04-27 02:00] VITALS: BP 108/75
[2018-04-27] MEDS: IPRATROPIUM/ALBUTEROL 0.5-3(2.5)MG/3ML NEB HHN SCH ×3 (03:58→12:00)
[2018-04-27 04:00] VITALS: BP 153/99
[2018-04-27] MEDS: METHYLPREDNISOLONE SOD SUCC 40 MG/ML VIAL IV SCH (05:30)
[2018-04-27] MEDS: BLOOD SUGAR DIAGNOSTIC STRIP TEST SCH (07:32)
[2018-04-27] MEDS: INSULIN LISPRO 100 UNITS/ML SUBCUT SCH (07:52)
[2018-04-27 08:00] VITALS: BP 167/106
[2018-04-27] MEDS: FUROSEMIDE 40MG TABLET PO SCH (08:12)
[2018-04-27] MEDS: ENOXAPARIN 40MG/0.4ML SYR SUBCUT SCH (08:12)
[2018-04-27] MEDS: LOSARTAN POTASSIUM 50 MG TABLET PO SCH (08:13)
[2018-04-27] MEDS: METFORMIN HCL 500MG TABLET PO SCH (08:13)
[2018-04-27] MEDS: AMLODIPINE 5MG TABLET PO SCH (08:13)
[2018-04-27] MEDS: VALPROIC ACID 250MG CAPSULE PO SCH (08:13)
[2018-04-27 09:17] LABS: HEMATOCRIT. 38.9 % (36.0-48.0); HEMOGLOBIN. 12.2 g/dL (12.0-16.0); MEAN CORPUSCULAR HEMOGLOBIN 27.8 pg (28.0-32.0); MEAN CORPUSCULAR VOLUME 88.6 fL (81.0-99.0); MEAN PLATELET VOLUME 10.2 fl (7.4-10.4); PLATELET 242 x1000/uL (130-400); RED BLOOD CELL COUNT 4.39 mill/uL (4.2-5.4); RED CELL DISTRIBUTION WIDTH 16.1 % (11.6-14.6)
[2018-04-27 10:00] VITALS: BP 152/100
[2018-04-27 15:54] LABS: PLATELET ESTIMATE NORMAL
== END 2018-04-27 10:20 | disposition home or self-care (01) | DRG 133 ==
LOC: ER 12:58 → 5EST 15:48 → EDBEDREQ 15:58 → EDBEDREQSVC 15:58 → ENRESERV 18:13
PROVIDERS: ADMIT Internal Medicine; ATTEND Internal Medicine
PROC: 5A09357 Assistance with Respiratory Ventilation, Less than 24 Consecutive Hours, Continuous Positive Airway Pressure (ICD-10-PCS; principal; 2018-04-24)
DX: J96.01 Acute respiratory failure with hypoxia (principal); I50.33 Acute on chronic diastolic (congestive) heart failure; J44.1 Chronic obstructive pulmonary disease with (acute) exacerbation; E11.22 Type 2 diabetes mellitus with diabetic chronic kidney disease; I13.0 Hypertensive heart and chronic kidney disease with heart failure and stage 1 through stage 4 chronic kidney disease, or unspecified chronic kidney disease; N39.0 Urinary tract infection, site not specified; E78.5 Hyperlipidemia, unspecified; F14.10 Cocaine abuse, uncomplicated; N18.9 Chronic kidney disease, unspecified; F17.210 Nicotine dependence, cigarettes, uncomplicated; Z88.8 Allergy status to other drugs, medicaments and biological substances; Z79.84 Long term (current) use of oral hypoglycemic drugs; Z79.899 Other long term (current) drug therapy
CPT/HCPCS: 36415; 36600; 71045; 80048; 80305; 82375; 82805; 82962; 83605; 83880; 84484; 93005; 94640; 94660; 96365; 96375; 99291; 99406; G0482; J0360; J1650; J1815; J1956; J2920; J2930; J3475; J7050; J7620

== ENCOUNTER 2018-06-03 01:40 | Emergency (ER) | payer MEDICAID, OTHER ==
[~2018-06-03] VITALS: Ht 167.6 cm; Wt 74.0 kg
[2018-06-03] MEDS ORDERED: PREDNISONE 20MG TABLET PO STA (02:39)
[2018-06-03] MEDS ORDERED: ALBUTEROL (0.083%) 2.5MG/3ML NEB HHN STA (02:39)
[2018-06-03] MEDS ORDERED: IPRATROPIUM BROMIDE (0.02%) 0.5MG/2.5ML NEB HHN STA (02:39)
[2018-06-03 07:31] VITALS: BP 136/89
[2018-06-03] MEDS ORDERED: FLUT1DIS3 IH (17:00)
[2018-06-03] MEDS ORDERED: BUDE6HFA IH (17:00)
[2018-06-03] MEDS ORDERED: IBUP-2029 PO (17:00)
[2018-06-03] MEDS ORDERED: ALBU18HF2 IH (17:00)
[2018-06-03] MEDS ORDERED: BENA40TA9 PO (17:00)
[2018-06-03] MEDS ORDERED: TIOT18CA3 IH (17:06)
[2018-06-04] MEDS ORDERED: PRED-276 PO (07:57)
[2018-06-04] MEDS ORDERED: LEVO500T2 PO (07:58)
== END 2018-06-03 08:05 | disposition home or self-care (01) ==
LOC: ER 01:59
DX: J44.1 Chronic obstructive pulmonary disease with (acute) exacerbation (principal); F17.200 Nicotine dependence, unspecified, uncomplicated; Z88.8 Allergy status to other drugs, medicaments and biological substances; Z79.899 Other long term (current) drug therapy
CPT/HCPCS: 71045; 94644; 99285; J7512; J7611; Z7610

== ENCOUNTER 2018-06-03 08:17 | Inpatient (IN) | payer MEDICAID, OTHER ==
[~2018-06-03] VITALS: Ht 172.7 cm; Wt 78.9 kg
[2018-06-03] MEDS ORDERED: ALBUTEROL (0.083%) 2.5MG/3ML NEB HHN STA (09:44)
[2018-06-03] MEDS ORDERED: IPRATROPIUM BROMIDE (0.02%) 0.5MG/2.5ML NEB HHN STA (09:44)
[2018-06-03 10:13] LABS: HEMATOCRIT. 33.7 % (36.0-48.0); HEMOGLOBIN. 10.5 g/dL (12.0-16.0); MEAN CORPUSCULAR VOLUME 89.5 fL (81.0-99.0); PLATELET 231 x1000/uL (130-400); RED BLOOD CELL COUNT 3.77 mill/uL (4.2-5.4); RED CELL DISTRIBUTION WIDTH 17.7 % (11.6-14.6)
[2018-06-03 10:21] LABS: CHLORIDE 114 mEq/L (98-107)
[2018-06-03] MEDS ORDERED: ACETAMINOPHEN 325MG TABLET PO PRN ×2 (10:30→11:30)
[2018-06-03 10:37] LABS: PLATELET ESTIMATE NORMAL
[2018-06-03] MEDS ORDERED: MAGNESIUM/ALUMINUM HYDROXIDE/SIMETHICONE 30ML UDC PO PRN (11:30)
[2018-06-03] MEDS ORDERED: NA PHOS,M-B/NA PHOS,DI-BA ENEMA 118ML PR PRN (11:30)
[2018-06-03] MEDS ORDERED: LORAZEPAM 2MG/ML CPJ IV PRN (11:30)
[2018-06-03] MEDS ORDERED: HYDROCODONE/ACETAMINOPHEN 5/325MG TABLET PO PRN (11:30)
[2018-06-03] MEDS ORDERED: MORPHINE SULFATE 4 MG/ML CPJ (NOT FOR IM USE) IV PRN (11:30)
[2018-06-03] MEDS ORDERED: DIPHENHYDRAMINE 50MG/ML VIAL IV PRN (11:30)
[2018-06-03] MEDS ORDERED: IPRATROPIUM/ALBUTEROL 0.5-3(2.5)MG/3ML NEB INH PRN (11:30)
[2018-06-03] MEDS ORDERED: ONDANSETRON HCL 4MG/2ML INJ IV PRN (11:30)
[2018-06-03] MEDS ORDERED: DOCUSATE SODIUM 100MG CAPSULE PO PRN (11:30)
[2018-06-03] MEDS ORDERED: GUAIFENESIN 200MG/10ML SUGAR FREE UDC PO PRN (11:30)
[2018-06-03 12:32] LABS: CLARITY URINE CLEAR (CLEAR); COLOR URINE YELLOW (YELLOW); KETONES URINE NEGATIVE (NEGATIVE); LEUKOCYTE ESTERASE URINE NEGATIVE (NEGATIVE); NITRITE URINE NEGATIVE (NEGATIVE); OCCULT BLOOD URINE NEGATIVE (NEGATIVE); PROTEIN URINE TRACE (NEGATIVE); SPECIFIC GRAVITY URINE 1.018 (1.005-1.030); UROBILINOGEN URINE 0.2 E.U./dL (0.2-1.0)
[2018-06-03] MEDS: CLONIDINE 0.1MG TABLET PO PRN (12:42)
[2018-06-03] MEDS ORDERED: FLUT1DIS3 IH (17:00)
[2018-06-03] MEDS ORDERED: BENA40TA9 PO (17:00)
[2018-06-03] MEDS ORDERED: ALBU18HF2 IH (17:00)
[2018-06-03] MEDS ORDERED: BUDE6HFA IH (17:00)
[2018-06-03] MEDS ORDERED: IBUP-2029 PO (17:00)
[2018-06-03] MEDS ORDERED: TIOT18CA3 IH (17:06)
[2018-06-03] MEDS ORDERED: ENOXAPARIN 40MG/0.4ML SYR SUBCUT SCH ×2 (18:00→20:00)
[2018-06-03] MEDS ORDERED: IPRATROPIUM/ALBUTEROL 0.5-3(2.5)MG/3ML NEB HHN SCH (18:00)
[2018-06-03] MEDS: METHYLPREDNISOLONE SOD SUCC 125 MG/2 ML VIAL IV SCH (18:17)
[2018-06-03 18:44] VITALS: BP 165/90
[2018-06-03 19:36] LABS: CLARITY URINE CLEAR (CLEAR); COLOR URINE YELLOW (YELLOW); KETONES URINE NEGATIVE (NEGATIVE); LEUKOCYTE ESTERASE URINE NEGATIVE (NEGATIVE); NITRITE URINE NEGATIVE (NEGATIVE); OCCULT BLOOD URINE NEGATIVE (NEGATIVE); PROTEIN URINE NEGATIVE (NEGATIVE); SPECIFIC GRAVITY URINE 1.023 (1.005-1.030); UROBILINOGEN URINE 0.2 E.U./dL (0.2-1.0)
[2018-06-03 19:51] LABS: *BARBITURATES SCREEN URINE NEGATIVE (NEGATIVE); *BENZODIAZEPINES SCREEN URINE NEGATIVE (NEGATIVE)
[2018-06-03 19:52] LABS: *COCAINE SCREEN URINE PRESUMTIVE POSITIVE (NEGATIVE); CANNABINOID URINE SCREEN PRESUMTIVE POSITIVE (NEGATIVE); METHADONE URINE SCREEN NEGATIVE (NEGATIVE); PHENCYCLIDINE URINE SCREEN NEGATIVE (NEGATIVE)
[2018-06-03 19:53] LABS: OPIATES URINE SCREEN NEGATIVE (NEGATIVE)
[2018-06-03 19:56] LABS: *AMPHETAMINES SCREEN URINE NEGATIVE (NEGATIVE)
[2018-06-03 20:00] VITALS: BP 162/98
[2018-06-03] MEDS ORDERED: ATORVASTATIN CALCIUM 10MG TABLET PO SCH (21:00)
[2018-06-03] MEDS: AMLODIPINE 5MG TABLET PO SCH (21:42)
[2018-06-04] VITALS: BP 145/96
[2018-06-04] MEDS: METHYLPREDNISOLONE SOD SUCC 125 MG/2 ML VIAL IV SCH ×3 (01:41→11:33)
[2018-06-04 04:00] VITALS: BP 167/94
[2018-06-04] MEDS: CLONIDINE 0.1MG TABLET PO PRN (04:16)
[2018-06-04 06:59] LABS: CHLORIDE 112 mEq/L (98-107)
[2018-06-04 07:20] LABS: HDL CHOLESTEROL 107 mg/dL (40-59); LDL CHOLESTEROL 82 mg/dL (5-100)
[2018-06-04 07:21] LABS: T4 FREE 0.71 ng/dL (0.76-1.46)
[2018-06-04 07:28] LABS: HEMOGLOBIN. 10.6 g/dL (12.0-16.0); MEAN CORPUSCULAR HEMOGLOBIN 28.3 pg (28.0-32.0); MEAN CORPUSCULAR VOLUME 88.6 fL (81.0-99.0); MEAN PLATELET VOLUME 10.1 fl (7.4-10.4); PLATELET 216 x1000/uL (130-400); RED BLOOD CELL COUNT 3.72 mill/uL (4.2-5.4); RED CELL DISTRIBUTION WIDTH 17.5 % (11.6-14.6)
[2018-06-04] MEDS ORDERED: PRED-276 PO (07:57)
[2018-06-04] MEDS ORDERED: LEVO500T2 PO (07:58)
[2018-06-04 08:00] VITALS: BP 152/82
[2018-06-04] MEDS ORDERED: ASPIRIN 81MG EC TABLET PO SCH (09:00)
[2018-06-04 09:47] VITALS: BP 145/78
[2018-06-04] MEDS ORDERED: CLONIDINE 0.1MG TABLET PO SCH (10:00)
[2018-06-04] MEDS: AMLODIPINE 5MG TABLET PO SCH (11:33)
[2018-06-04 12:00] VITALS: BP 129/71
[2018-06-04 16:27] LABS: PLATELET ESTIMATE NORMAL
== END 2018-06-04 14:35 | disposition home or self-care (01) | DRG 133 ==
LOC: ER 08:17 → 8WST 10:15 → EDBEDREQ 10:24 → ENRESERV 15:39
PROVIDERS: ADMIT Internal Medicine; ATTEND Internal Medicine
DX: J96.00 Acute respiratory failure, unspecified whether with hypoxia or hypercapnia (principal); N17.9 Acute kidney failure, unspecified; E11.22 Type 2 diabetes mellitus with diabetic chronic kidney disease; I50.9 Heart failure, unspecified; I13.0 Hypertensive heart and chronic kidney disease with heart failure and stage 1 through stage 4 chronic kidney disease, or unspecified chronic kidney disease; I45.81 Long QT syndrome; F12.10 Cannabis abuse, uncomplicated; N18.2 Chronic kidney disease, stage 2 (mild); J44.1 Chronic obstructive pulmonary disease with (acute) exacerbation; E78.5 Hyperlipidemia, unspecified; F14.10 Cocaine abuse, uncomplicated; F31.9 Bipolar disorder, unspecified; G40.909 Epilepsy, unspecified, not intractable, without status epilepticus; Z79.51 Long term (current) use of inhaled steroids; Z79.84 Long term (current) use of oral hypoglycemic drugs; Z79.899 Other long term (current) drug therapy; Z86.711 Personal history of pulmonary embolism; Z71.51 Drug abuse counseling and surveillance of drug abuser; Z71.6 Tobacco abuse counseling; Z86.718 Personal history of other venous thrombosis and embolism; Z88.8 Allergy status to other drugs, medicaments and biological substances
CPT/HCPCS: 36415; 78582; 80048; 80061; 80305; 83880; 84439; 84443; 84484; 85379; 93005; 93306; 93970; 94640; 99285; A9558; J1650; J2930; J7611; J7620

== ENCOUNTER 2018-08-10 10:36 | Inpatient (IN) | payer OTHER ==
[~2018-08-10] VITALS: Ht 175.3 cm; Wt 89.8 kg
[~2018-08-10 10:36] MED LIST changes: +ALBU18HF2 IH; -AMLO5TAB4 PO; +BENA40TA9 PO; +BUDE6HFA IH; -DIVA-75 PO; +FLUT1DIS3 IH; +IBUP-2029 PO; +LEVO500T2 PO; -LOSA50TA20 PO; -METF-416 PO; -MONT10TA21 PO; +PRED-276 PO; +TIOT18CA3 IH
[2018-08-10] MEDS ORDERED: IPRATROPIUM BROMIDE (0.02%) 0.5MG/2.5ML NEB HHN STA (11:11)
[2018-08-10] MEDS ORDERED: ALBUTEROL (0.083%) 2.5MG/3ML NEB HHN STA (11:11)
[2018-08-10] MEDS ORDERED: METHYLPREDNISOLONE SOD SUCC 125 MG/2 ML VIAL IV STA (11:11)
[2018-08-10] MEDS ORDERED: MAGNESIUM 2 G PREMIX 50 ML IV ONE (11:15)
[2018-08-10 11:37] LABS: BASOPHILS % 0.8 % (0.0-2.0); EOSINOPHILS % 1.3 % (0.0-5.0); HEMOGLOBIN. 13.3 g/dL (12.0-16.0); LYMPHOCYTES % 19.8 % (20.0-50.0); MEAN CORPUSCULAR HEMOGLOBIN 28.1 pg (28.0-32.0); MEAN CORPUSCULAR VOLUME 86.3 fL (81.0-99.0); MEAN PLATELET VOLUME 9.8 fl (7.4-10.4); MONOCYTES % 8.8 % (2.0-8.0); NEUTROPHILS % 69.3 % (40.0-76.0); PLATELET 270 x1000/uL (130-400); RED BLOOD CELL COUNT 4.75 mill/uL (4.2-5.4); RED CELL DISTRIBUTION WIDTH 16.5 % (11.6-14.6)
[2018-08-10 11:42] LABS: CHLORIDE 106 mEq/L (98-107)
[2018-08-10 11:43] LABS: PROTHROMBIN TIME 10.7 sec (9.6-11.0)
[2018-08-10 18:03] VITALS: BP 141/90
[2018-08-10 18:43] VITALS: BP 141/90
[2018-08-10 18:45] VITALS: BP 141/90
[2018-08-10] MEDS ORDERED: ACETAMINOPHEN 325MG TABLET PO PRN (19:30)
[2018-08-10 20:00] VITALS: BP 129/82
[2018-08-10] MEDS ORDERED: LEVOFLOXACIN 500MG PREMIX 100 ML IV SCH (20:00)
[2018-08-10] MEDS: METHYLPREDNISOLONE SOD SUCC 40 MG/ML VIAL IV SCH (20:51)
[2018-08-11] VITALS: BP 159/99
[2018-08-11] MEDS: IPRATROPIUM/ALBUTEROL 0.5-3(2.5)MG/3ML NEB HHN SCH ×6 (00:24→20:51)
[2018-08-11] MEDS: ZOLPIDEM TARTRATE 5MG TABLET PO PRN (00:46)
[2018-08-11] MEDS: GUAIFENESIN-DM 200MG-20MG/10ML UDC PO PRN ×2 (00:47→15:19)
[2018-08-11 04:00] VITALS: BP 162/93
[2018-08-11] MEDS: METHYLPREDNISOLONE SOD SUCC 40 MG/ML VIAL IV SCH (05:16)
[2018-08-11 06:56] LABS: BASOPHILS % 0.2 % (0.0-2.0); HEMATOCRIT. 36.9 % (36.0-48.0); HEMOGLOBIN. 11.9 g/dL (12.0-16.0); LYMPHOCYTES % 10.1 % (20.0-50.0); MEAN CORPUSCULAR HEMOGLOBIN 27.8 pg (28.0-32.0); MEAN CORPUSCULAR VOLUME 86.3 fL (81.0-99.0); MONOCYTES % 6.2 % (2.0-8.0); NEUTROPHILS % 83.5 % (40.0-76.0); PLATELET 259 x1000/uL (130-400); RED BLOOD CELL COUNT 4.28 mill/uL (4.2-5.4); RED CELL DISTRIBUTION WIDTH 16.3 % (11.6-14.6)
[2018-08-11 08:00] VITALS: BP 147/99
[2018-08-11] MEDS: AMLODIPINE 10MG TABLET PO SCH (08:29)
[2018-08-11] MEDS: ENOXAPARIN 40MG/0.4ML SYR SUBCUT SCH (08:30)
[2018-08-11] MEDS ORDERED: IPRATROPIUM/ALBUTEROL 0.5-3(2.5)MG/3ML NEB HHN PRN (11:30)
[2018-08-11 12:00] VITALS: BP 132/75
[2018-08-11] MEDS: METHYLPREDNISOLONE SOD SUCC 125 MG/2 ML VIAL IV SCH ×3 (12:04→23:51)
[2018-08-11 16:00] VITALS: BP 127/78
[2018-08-11 19:21] LABS: CLARITY URINE CLEAR (CLEAR); COLOR URINE YELLOW (YELLOW); KETONES URINE TRACE (NEGATIVE); LEUKOCYTE ESTERASE URINE NEGATIVE (NEGATIVE); NITRITE URINE NEGATIVE (NEGATIVE); OCCULT BLOOD URINE NEGATIVE (NEGATIVE); PH URINE 5.5 (4.5-8.0); PROTEIN URINE TRACE (NEGATIVE); UROBILINOGEN URINE 0.2 E.U./dL (0.2-1.0)
[2018-08-11 19:35] LABS: *AMPHETAMINES SCREEN URINE NEGATIVE (NEGATIVE); *BARBITURATES SCREEN URINE NEGATIVE (NEGATIVE); *BENZODIAZEPINES SCREEN URINE NEGATIVE (NEGATIVE); *COCAINE SCREEN URINE PRESUMTIVE POSITIVE (NEGATIVE)
[2018-08-11 19:36] LABS: CANNABINOID URINE SCREEN PRESUMTIVE POSITIVE (NEGATIVE); METHADONE URINE SCREEN NEGATIVE (NEGATIVE); OPIATES URINE SCREEN NEGATIVE (NEGATIVE); PHENCYCLIDINE URINE SCREEN NEGATIVE (NEGATIVE)
[2018-08-11 20:00] VITALS: BP 138/74
[2018-08-11] MEDS: LEVOFLOXACIN 250MG PREMIX 50 ML IV SCH (20:00)
[2018-08-11] MEDS: GUAIFENESIN 600MG ER TABLET PO SCH (20:00)
[2018-08-12] VITALS: BP 154/92
[2018-08-12] MEDS: IPRATROPIUM/ALBUTEROL 0.5-3(2.5)MG/3ML NEB HHN SCH ×6 (00:50→20:59)
[2018-08-12] MEDS: ZOLPIDEM TARTRATE 5MG TABLET PO PRN ×2 (00:52→21:04)
[2018-08-12 04:00] VITALS: BP_SYST 145; BP_SYST 168; BP_DIAS 100; BP_DIAS 89
[2018-08-12] MEDS: METHYLPREDNISOLONE SOD SUCC 125 MG/2 ML VIAL IV SCH ×4 (05:14→23:47)
[2018-08-12] MEDS: GUAIFENESIN-DM 200MG-20MG/10ML UDC PO PRN (05:50)
[2018-08-12 07:07] LABS: HEMATOCRIT. 35.6 % (36.0-48.0); HEMOGLOBIN. 11.3 g/dL (12.0-16.0); MEAN CORPUSCULAR HEMOGLOBIN 27.7 pg (28.0-32.0); MEAN CORPUSCULAR VOLUME 87.2 fL (81.0-99.0); MEAN PLATELET VOLUME 10.1 fl (7.4-10.4); PLATELET 234 x1000/uL (130-400); RED BLOOD CELL COUNT 4.09 mill/uL (4.2-5.4); RED CELL DISTRIBUTION WIDTH 16.2 % (11.6-14.6)
[2018-08-12 08:00] VITALS: BP 140/82
[2018-08-12] MEDS: AMLODIPINE 10MG TABLET PO SCH (08:53)
[2018-08-12] MEDS: ENOXAPARIN 40MG/0.4ML SYR SUBCUT SCH (08:53)
[2018-08-12 08:54] LABS: PLATELET ESTIMATE NORMAL
[2018-08-12] MEDS: GUAIFENESIN 600MG ER TABLET PO SCH ×2 (08:54→21:02)
[2018-08-12 12:00] VITALS: BP 138/80
[2018-08-12 16:00] VITALS: BP 142/83
[2018-08-12 20:00] VITALS: BP 150/88
[2018-08-12] MEDS: LEVOFLOXACIN 250MG PREMIX 50 ML IV SCH (21:02)
[2018-08-13] VITALS: BP 140/83
[2018-08-13] MEDS: IPRATROPIUM/ALBUTEROL 0.5-3(2.5)MG/3ML NEB HHN SCH ×6 (00:11→20:56)
[2018-08-13 04:00] VITALS: BP 130/80
[2018-08-13] MEDS: METHYLPREDNISOLONE SOD SUCC 125 MG/2 ML VIAL IV SCH ×2 (05:29→11:41)
[2018-08-13] MEDS: GUAIFENESIN 600MG ER TABLET PO SCH ×2 (08:06→21:03)
[2018-08-13] MEDS: ENOXAPARIN 40MG/0.4ML SYR SUBCUT SCH (08:10)
[2018-08-13] MEDS: AMLODIPINE 10MG TABLET PO SCH (08:10)
[2018-08-13 08:26] VITALS: BP 140/78
[2018-08-13 12:00] VITALS: BP 142/72
[2018-08-13] MEDS ORDERED: TERBUTALINE SULFATE 1MG/ML VIAL SUBCUT NR (15:00)
[2018-08-13 16:00] VITALS: BP 169/85
[2018-08-13] MEDS: PREDNISONE 20MG TABLET PO SCH (17:53)
[2018-08-13 20:23] VITALS: BP 143/73
[2018-08-13] MEDS: LEVOFLOXACIN 250MG TABLET PO SCH (21:03)
[2018-08-13] MEDS: ZOLPIDEM TARTRATE 5MG TABLET PO PRN (21:06)
[2018-08-13] MEDS ORDERED: DEXTROSE 50% WATER 50ML SYRINGE IV PRN (21:15)
[2018-08-13] MEDS: BLOOD SUGAR DIAGNOSTIC STRIP TEST SCH (21:23)
[2018-08-13] MEDS: INSULIN LISPRO 100 UNITS/ML SUBCUT SCH (21:32)
[2018-08-13] MEDS ORDERED: ONDANSETRON HCL 4MG/2ML INJ IV PRN (21:45)
[2018-08-13] MEDS: MORPHINE SULFATE 4 MG/ML CPJ (NOT FOR IM USE) IV PRN (23:05)
[2018-08-14 00:05] VITALS: BP 144/78
[2018-08-14] MEDS: IPRATROPIUM/ALBUTEROL 0.5-3(2.5)MG/3ML NEB HHN SCH ×6 (01:06→20:22)
[2018-08-14 04:00] VITALS: BP 130/61
[2018-08-14] MEDS: INSULIN LISPRO 100 UNITS/ML SUBCUT SCH ×4 (07:42→22:18)
[2018-08-14] MEDS: BLOOD SUGAR DIAGNOSTIC STRIP TEST SCH ×4 (07:42→21:56)
[2018-08-14 08:01] VITALS: BP 130/78
[2018-08-14] MEDS: AMLODIPINE 10MG TABLET PO SCH (08:45)
[2018-08-14] MEDS: GUAIFENESIN 600MG ER TABLET PO SCH ×2 (08:45→22:15)
[2018-08-14] MEDS: PREDNISONE 20MG TABLET PO SCH (08:47)
[2018-08-14] MEDS: GUAIFENESIN-DM 200MG-20MG/10ML UDC PO PRN (08:47)
[2018-08-14] MEDS: ENOXAPARIN 40MG/0.4ML SYR SUBCUT SCH (08:51)
[2018-08-14 12:06] VITALS: BP 152/72
[2018-08-14] MEDS: MORPHINE SULFATE 4 MG/ML CPJ (NOT FOR IM USE) IV PRN ×2 (12:10→20:52)
[2018-08-14] MEDS ORDERED: DILTIAZEM HCL 5MG/ML 5ML VIAL IV PRN (13:30)
[2018-08-14 16:30] VITALS: BP 128/92
[2018-08-14] MEDS: DILTIAZEM HCL 60MG TABLET PO SCH (17:48)
[2018-08-14] MEDS ORDERED: DIGOXIN 250MCG TABLET PO SCH (18:00)
[2018-08-14] MEDS: LEVOFLOXACIN 250MG TABLET PO SCH (22:14)
[2018-08-14] MEDS: ZOLPIDEM TARTRATE 5MG TABLET PO PRN (22:15)
[2018-08-15] VITALS: BP 151/83
[2018-08-15] MEDS: IPRATROPIUM/ALBUTEROL 0.5-3(2.5)MG/3ML NEB HHN SCH ×4 (00:27→12:20)
[2018-08-15] MEDS: DILTIAZEM HCL 60MG TABLET PO SCH ×3 (02:24→12:00)
[2018-08-15 04:00] VITALS: BP 165/70
[2018-08-15] MEDS: MORPHINE SULFATE 4 MG/ML CPJ (NOT FOR IM USE) IV PRN (05:04)
[2018-08-15] MEDS: BLOOD SUGAR DIAGNOSTIC STRIP TEST SCH ×2 (06:40→12:57)
[2018-08-15 06:59] LABS: HEMATOCRIT. 35.5 % (36.0-48.0); HEMOGLOBIN. 11.3 g/dL (12.0-16.0); MEAN CORPUSCULAR HEMOGLOBIN 27.9 pg (28.0-32.0); MEAN CORPUSCULAR VOLUME 87.7 fL (81.0-99.0); MEAN PLATELET VOLUME 10.2 fl (7.4-10.4); PLATELET 187 x1000/uL (130-400); RED BLOOD CELL COUNT 4.05 mill/uL (4.2-5.4); RED CELL DISTRIBUTION WIDTH 16.2 % (11.6-14.6)
[2018-08-15 08:00] VITALS: BP 105/67
[2018-08-15] MEDS: PREDNISONE 20MG TABLET PO SCH (09:53)
[2018-08-15] MEDS: GUAIFENESIN 600MG ER TABLET PO SCH (09:53)
[2018-08-15] MEDS: ENOXAPARIN 40MG/0.4ML SYR SUBCUT SCH (09:58)
[2018-08-15] MEDS ORDERED: BENZONATATE 100MG CAPSULE PO PRN (10:15)
[2018-08-15] MEDS ORDERED: METHYLPREDNISOLONE SOD SUCC 125 MG/2 ML VIAL IV SCH (10:15)
[2018-08-15 12:00] VITALS: BP 105/67
[2018-08-15 12:17] LABS: PLATELET ESTIMATE NORMAL
[2018-08-15] MEDS: INSULIN LISPRO 100 UNITS/ML SUBCUT SCH (13:22)
[2018-08-15 14:12] VITALS: BP 105/67
== END 2018-08-15 15:00 | disposition home or self-care (01) | DRG 133 ==
LOC: ER 11:02 → 7WST 14:21 → EDBEDREQ 14:32 → ENRESERV 15:59 → 6WST 08-15 07:57
PROVIDERS: ADMIT Internal Medicine; ATTEND Internal Medicine
DX: J96.20 Acute and chronic respiratory failure, unspecified whether with hypoxia or hypercapnia (principal); N17.0 Acute kidney failure with tubular necrosis; D68.59 Other primary thrombophilia; E11.22 Type 2 diabetes mellitus with diabetic chronic kidney disease; J44.1 Chronic obstructive pulmonary disease with (acute) exacerbation; I47.1 Supraventricular tachycardia; N18.2 Chronic kidney disease, stage 2 (mild); D64.9 Anemia, unspecified; E66.9 Obesity, unspecified; F12.90 Cannabis use, unspecified, uncomplicated; E78.5 Hyperlipidemia, unspecified; I12.9 Hypertensive chronic kidney disease with stage 1 through stage 4 chronic kidney disease, or unspecified chronic kidney disease; M19.90 Unspecified osteoarthritis, unspecified site; G40.909 Epilepsy, unspecified, not intractable, without status epilepticus; J06.9 Acute upper respiratory infection, unspecified; F14.10 Cocaine abuse, uncomplicated; F31.9 Bipolar disorder, unspecified; Z86.711 Personal history of pulmonary embolism; Z86.718 Personal history of other venous thrombosis and embolism; Z87.891 Personal history of nicotine dependence; Z88.8 Allergy status to other drugs, medicaments and biological substances; Z79.2 Long term (current) use of antibiotics; Z79.899 Other long term (current) drug therapy; Z68.29 Body mass index [BMI] 29.0-29.9, adult
CPT/HCPCS: 36415; 71045; 80048; 80305; 82962; 83880; 84484; 87804; 93005; 93306; 93970; 94640; 94644; 96365; 96366; 96375; 99285; J1650; J1815; J1956; J2270; J2920; J2930; J3105; J3475; J7050; J7512; J7611; J7620

== ENCOUNTER 2018-10-18 07:34 | Emergency (ER) | payer OTHER ==
[~2018-10-18] VITALS: Ht 165.1 cm; Wt 73.0 kg
[2018-10-18] MEDS ORDERED: MAGNESIUM 2 G PREMIX 50 ML IV STA (07:47)
[2018-10-18] MEDS ORDERED: ALBUTEROL (0.083%) 2.5MG/3ML NEB HHN STA (07:47)
[2018-10-18] MEDS ORDERED: IPRATROPIUM BROMIDE (0.02%) 0.5MG/2.5ML NEB HHN STA (07:47)
[2018-10-18] MEDS ORDERED: METHYLPREDNISOLONE SOD SUCC 125 MG/2 ML VIAL IV STA (07:47)
[2018-10-18] MEDS ORDERED: FUROSEMIDE 20MG/2ML VIAL IVP ONE (08:00)
[2018-10-18 08:33] LABS: BASOPHILS % 0.9 % (0.0-2.0); HEMATOCRIT. 38.9 % (36.0-48.0); HEMOGLOBIN. 12.4 g/dL (12.0-16.0); LYMPHOCYTES % 18.2 % (20.0-50.0); MEAN CORPUSCULAR HEMOGLOBIN 27.8 pg (28.0-32.0); MEAN CORPUSCULAR VOLUME 87.7 fL (81.0-99.0); MEAN PLATELET VOLUME 10.1 fl (7.4-10.4); MONOCYTES % 9.2 % (2.0-8.0); NEUTROPHILS % 68.7 % (40.0-76.0); PLATELET 182 x1000/uL (130-400); RED BLOOD CELL COUNT 4.44 mill/uL (4.2-5.4); RED CELL DISTRIBUTION WIDTH 16.6 % (11.6-14.6)
[2018-10-18 08:37] LABS: CHLORIDE 109 mEq/L (98-107)
[2018-10-18 08:42] LABS: ETHANOL BLOOD < 10 mg/dL
[2018-10-18 12:26] VITALS: BP 147/106
== END 2018-10-18 12:49 | disposition short-term general hospital (02) ==
LOC: ER 07:34 → EDBEDREQTM 09:48 → ER 12:49 → CANBEDREQ 17:12
DX: J44.1 Chronic obstructive pulmonary disease with (acute) exacerbation (principal); I11.0 Hypertensive heart disease with heart failure; F14.10 Cocaine abuse, uncomplicated; I50.9 Heart failure, unspecified; E11.9 Type 2 diabetes mellitus without complications; R56.9 Unspecified convulsions; Z79.899 Other long term (current) drug therapy; Z88.8 Allergy status to other drugs, medicaments and biological substances
CPT/HCPCS: 36415; 71045; 80053; 80320; 83880; 84484; 85025; 93005; 94644; 96365; 96366; 96375; 99291; J1940; J2930; J3475; J7611; G0480

== ENCOUNTER 2019-01-10 11:34 | Inpatient (IN) | payer OTHER ==
[~2019-01-10] VITALS: Ht 167.6 cm; Wt 90.3 kg
[2019-01-10] MEDS ORDERED: IPRATROPIUM/ALBUTEROL 0.5-3(2.5)MG/3ML NEB HHN ONE (12:00)
[2019-01-10] MEDS ORDERED: LORAZEPAM 2MG/ML CPJ IV ONE (12:00)
[2019-01-10] MEDS ORDERED: PREDNISONE 20MG TABLET PO ONE (12:00)
[2019-01-10 13:48] LABS: BASOPHILS % 0.8 % (0.0-2.0); EOSINOPHILS % 1.1 % (0.0-5.0); HEMOGLOBIN. 10.7 g/dL (12.0-16.0); LYMPHOCYTES % 13.6 % (20.0-50.0); MEAN CORPUSCULAR HEMOGLOBIN 28.2 pg (28.0-32.0); MEAN CORPUSCULAR VOLUME 89.5 fL (81.0-99.0); MEAN PLATELET VOLUME 10.1 fl (7.4-10.4); MONOCYTES % 9.6 % (2.0-8.0); NEUTROPHILS % 74.9 % (40.0-76.0); PLATELET 188 x1000/uL (130-400); RED CELL DISTRIBUTION WIDTH 17.2 % (11.6-14.6)
[2019-01-10 13:50] LABS: CHLORIDE 113 mEq/L (98-107)
[2019-01-10] MEDS ORDERED: IPRATROPIUM BROMIDE (0.02%) 0.5MG/2.5ML NEB HHN STA (19:38)
[2019-01-10] MEDS ORDERED: ALBUTEROL (0.083%) 2.5MG/3ML NEB HHN STA (19:38)
[2019-01-10] MEDS ORDERED: ALBUTEROL (0.5%) 2.5MG/0.5ML NEB HHN ONE (21:52)
[2019-01-10] MEDS ORDERED: ALBUTEROL (0.083%) 2.5MG/3ML NEB ONE (21:54)
[2019-01-11] MEDS ORDERED: IBUPROFEN 600MG TABLET PO PRN (02:45)
[2019-01-11 03:00] VITALS: BP 111/73
[2019-01-11] MEDS ORDERED: MORPHINE SULFATE 2 MG/ML CPJ (NOT FOR IM USE) IV PRN (03:00)
[2019-01-11] MEDS ORDERED: IPRATROPIUM/ALBUTEROL 0.5-3(2.5)MG/3ML NEB HHN PRN (03:00)
[2019-01-11] MEDS ORDERED: LORAZEPAM 2MG/ML CPJ IV PRN (03:00)
[2019-01-11] MEDS ORDERED: QUETIAPINE FUMARATE 50MG TABLET PO SCH (03:30)
[2019-01-11 04:00] VITALS: BP 154/74
[2019-01-11 08:00] VITALS: BP 111/67
[2019-01-11] MEDS ORDERED: BUDESONIDE 0.5MG/2ML NEB HHN SCH (08:00)
[2019-01-11] MEDS ORDERED: HYDROCODONE/ACETAMINOPHEN 5/325MG TABLET PO PRN (08:00)
[2019-01-11] MEDS: IPRATROPIUM/ALBUTEROL 0.5-3(2.5)MG/3ML NEB HHN SCH ×4 (08:02→21:43)
[2019-01-11] MEDS ORDERED: BENAZEPRIL 10MG TABLET PO SCH (09:00)
[2019-01-11 10:24] LABS: BG BASE EXCESS -3.8 mmol/L (-2.0-2.0); BG CARBOXYHEMOGLOBIN 0.1 % (0.5-1.5); BG DEOXYHEMOGLOBIN 2.2 % (0.0-5.0); BG FRACTION INSPIRED OXYGEN 28; BG HCO3 ACT 23.7 mmol/L (22.0-26.0); BG METHEMOGLOBIN 0.1 % (0.0-1.5); BG OXYGEN SATURATION 97.8 % (92.0-98.5); BG OXYHEMOGLOBIN 97.6 % (94.0-97.0); BG PCO2 53.8 mmHg (35.0-45.0); BG PH 7.261 (7.350-7.450); BG PO2 109.1 mmHg (75.0-100.0); BG SAMPLE SITE RIGHT BRACHIAL; BG TOTAL HEMOGLOBIN 11.8 g/dL (12.0-18.0); BG VENT MODE NASAL CANNULA
[2019-01-11] MEDS: AMLODIPINE 10MG TABLET PO SCH ×2 (10:24→10:26)
[2019-01-11] MEDS: ENOXAPARIN 30MG/0.3ML SYR SUBCUT SCH (10:25)
[2019-01-11 12:00] VITALS: BP 121/80
[2019-01-11 16:00] VITALS: BP 121/73
[2019-01-11] MEDS: METHYLPREDNISOLONE SOD SUCC 40 MG/ML VIAL IV SCH (19:54)
[2019-01-11] MEDS: SODIUM CHLORIDE 0.9% 1,000 ML IV SCH ×2 (19:55→21:20)
[2019-01-11 19:57] LABS: BASOPHILS % 0.6 % (0.0-2.0); EOSINOPHILS % 1.3 % (0.0-5.0); HEMATOCRIT. 35.1 % (36.0-48.0); HEMOGLOBIN. 11.2 g/dL (12.0-16.0); LYMPHOCYTES % 26.3 % (20.0-50.0); MEAN CORPUSCULAR HEMOGLOBIN 28.5 pg (28.0-32.0); MEAN CORPUSCULAR VOLUME 89.6 fL (81.0-99.0); MEAN PLATELET VOLUME 10.7 fl (7.4-10.4); MONOCYTES % 10.5 % (2.0-8.0); NEUTROPHILS % 61.3 % (40.0-76.0); PLATELET 178 x1000/uL (130-400); RED BLOOD CELL COUNT 3.92 mill/uL (4.2-5.4); RED CELL DISTRIBUTION WIDTH 16.8 % (11.6-14.6)
[2019-01-11 20:00] VITALS: BP 137/69
[2019-01-11] MEDS: MONTELUKAST SODIUM 10MG TABLET PO SCH ×2 (20:37→21:34)
[2019-01-11] MEDS: ATORVASTATIN CALCIUM 10MG TABLET PO SCH (21:35)
[2019-01-11] MEDS: GUAIFENESIN 600MG ER TABLET PO SCH (21:35)
[2019-01-12] VITALS (7 sets, daily range): BP systolic 128–187; BP diastolic 59–101
[2019-01-12] MEDS: IPRATROPIUM/ALBUTEROL 0.5-3(2.5)MG/3ML NEB HHN SCH ×6 (00:34→21:08)
[2019-01-12] MEDS: METHYLPREDNISOLONE SOD SUCC 40 MG/ML VIAL IV SCH ×2 (01:49→09:17)
[2019-01-12 07:14] LABS: BASOPHILS % 0.2 % (0.0-2.0); HEMATOCRIT. 35.7 % (36.0-48.0); HEMOGLOBIN. 11.1 g/dL (12.0-16.0); LYMPHOCYTES % 8.2 % (20.0-50.0); MEAN CORPUSCULAR HEMOGLOBIN 28.3 pg (28.0-32.0); MEAN CORPUSCULAR VOLUME 90.5 fL (81.0-99.0); MEAN PLATELET VOLUME 10.6 fl (7.4-10.4); NEUTROPHILS % 89.6 % (40.0-76.0); PLATELET 172 x1000/uL (130-400); RED BLOOD CELL COUNT 3.94 mill/uL (4.2-5.4)
[2019-01-12 07:20] LABS: PHOSPHORUS 2.7 mg/dL (2.5-4.9)
[2019-01-12 07:48] LABS: CLARITY URINE CLEAR (CLEAR); COLOR URINE YELLOW (YELLOW); KETONES URINE NEGATIVE (NEGATIVE); LEUKOCYTE ESTERASE URINE NEGATIVE (NEGATIVE); NITRITE URINE NEGATIVE (NEGATIVE); OCCULT BLOOD URINE NEGATIVE (NEGATIVE); PROTEIN URINE NEGATIVE (NEGATIVE); SPECIFIC GRAVITY URINE 1.013 (1.005-1.030); UROBILINOGEN URINE 0.2 E.U./dL (0.2-1.0)
[2019-01-12 08:13] LABS: CANNABINOID URINE SCREEN NEGATIVE (NEGATIVE); OPIATES URINE SCREEN PRESUMTIVE POSITIVE (NEGATIVE); PHENCYCLIDINE URINE SCREEN NEGATIVE (NEGATIVE)
[2019-01-12 08:14] LABS: *AMPHETAMINES SCREEN URINE NEGATIVE (NEGATIVE); *BARBITURATES SCREEN URINE NEGATIVE (NEGATIVE); *BENZODIAZEPINES SCREEN URINE NEGATIVE (NEGATIVE); *COCAINE SCREEN URINE PRESUMTIVE POSITIVE (NEGATIVE); METHADONE URINE SCREEN NEGATIVE (NEGATIVE)
[2019-01-12] MEDS: AMLODIPINE 10MG TABLET PO SCH (09:17)
[2019-01-12] MEDS: ENOXAPARIN 30MG/0.3ML SYR SUBCUT SCH (09:17)
[2019-01-12] MEDS: GUAIFENESIN 600MG ER TABLET PO SCH ×3 (09:17→22:06)
[2019-01-12] MEDS ORDERED: SODIUM POLYSTYRENE SULFONATE 15 G/60 ML BOT PO SCH (10:00)
[2019-01-12] MEDS: SODIUM CHLORIDE 0.9% 1,000 ML IV SCH (15:25)
[2019-01-12] MEDS: PREDNISONE 20MG TABLET PO SCH (16:25)
[2019-01-12] MEDS: ATORVASTATIN CALCIUM 10MG TABLET PO SCH (22:07)
[2019-01-12] MEDS ORDERED: AMLODIPINE 5MG TABLET PO SCH (22:17)
[2019-01-12] MEDS ORDERED: AMLODIPINE 5MG TABLET PO NR (22:45)
[2019-01-12] MEDS: ZOLPIDEM TARTRATE 5MG TABLET PO PRN (22:47)
[2019-01-13] VITALS: BP_SYST 134; BP_SYST 136; BP_SYST 148; BP_DIAS 72; BP_DIAS 75
[2019-01-13 04:00] VITALS: BP 165/81
[2019-01-13] MEDS: SODIUM CHLORIDE 0.9% 1,000 ML IV SCH (05:00)
[2019-01-13] MEDS: CLONIDINE 0.1MG TABLET PO PRN ×2 (05:32→17:22)
[2019-01-13 07:35] LABS: BASOPHILS % 0.2 % (0.0-2.0); HEMATOCRIT. 34.7 % (36.0-48.0); HEMOGLOBIN. 11.1 g/dL (12.0-16.0); LYMPHOCYTES % 9.4 % (20.0-50.0); MEAN CORPUSCULAR HEMOGLOBIN 28.9 pg (28.0-32.0); MEAN PLATELET VOLUME 11.1 fl (7.4-10.4); MONOCYTES % 7.4 % (2.0-8.0); PLATELET 139 x1000/uL (130-400); RED BLOOD CELL COUNT 3.85 mill/uL (4.2-5.4)
[2019-01-13 08:00] VITALS: BP 165/92
[2019-01-13 08:41] LABS: PHOSPHORUS 1.9 mg/dL (2.5-4.9)
[2019-01-13] MEDS ORDERED: AMLODIPINE 5MG TABLET PO SCH (09:00)
[2019-01-13] MEDS: IPRATROPIUM/ALBUTEROL 0.5-3(2.5)MG/3ML NEB HHN SCH ×4 (09:24→20:01)
[2019-01-13] MEDS: PREDNISONE 20MG TABLET PO SCH ×2 (09:55→16:58)
[2019-01-13] MEDS: GUAIFENESIN 600MG ER TABLET PO SCH ×2 (09:55→21:17)
[2019-01-13] MEDS: ENOXAPARIN 40MG/0.4ML SYR SUBCUT SCH (09:56)
[2019-01-13] MEDS ORDERED: AMLODIPINE 5MG TABLET PO NR (11:00)
[2019-01-13 12:00] VITALS: BP_SYST 175; BP_SYST 177; BP_DIAS 105; BP_DIAS 94
[2019-01-13] MEDS ORDERED: HYDRALAZINE HCL 50MG TABLET PO SCH ×2 (12:00→21:00)
[2019-01-13 16:00] VITALS: BP 177/94
[2019-01-13] MEDS: MONTELUKAST SODIUM 10MG TABLET PO SCH (16:57)
[2019-01-13 20:00] VITALS: BP 124/76
[2019-01-13] MEDS: HYDRALAZINE HCL 100MG TABLET PO SCH (21:17)
[2019-01-13] MEDS: ATORVASTATIN CALCIUM 10MG TABLET PO SCH (21:17)
[2019-01-13] MEDS: ZOLPIDEM TARTRATE 5MG TABLET PO PRN (21:17)
[2019-01-14] VITALS: BP 128/70
[2019-01-14] MEDS: IPRATROPIUM/ALBUTEROL 0.5-3(2.5)MG/3ML NEB HHN SCH ×4 (00:31→13:15)
[2019-01-14 04:00] VITALS: BP 135/75
[2019-01-14 06:30] LABS: BASOPHILS % 0.1 % (0.0-2.0); HEMATOCRIT. 34.5 % (36.0-48.0); HEMOGLOBIN. 11.2 g/dL (12.0-16.0); LYMPHOCYTES % 9.7 % (20.0-50.0); MEAN CORPUSCULAR HEMOGLOBIN 28.7 pg (28.0-32.0); MEAN CORPUSCULAR VOLUME 88.6 fL (81.0-99.0); MEAN PLATELET VOLUME 10.5 fl (7.4-10.4); MONOCYTES % 8.2 % (2.0-8.0); PLATELET 159 x1000/uL (130-400); RED CELL DISTRIBUTION WIDTH 16.5 % (11.6-14.6)
[2019-01-14 07:05] LABS: PHOSPHORUS 1.5 mg/dL (2.5-4.9)
[2019-01-14 08:00] VITALS: BP 172/101
[2019-01-14] MEDS: PREDNISONE 20MG TABLET PO SCH (08:41)
[2019-01-14] MEDS: HYDRALAZINE HCL 100MG TABLET PO SCH (08:42)
[2019-01-14] MEDS: ENOXAPARIN 40MG/0.4ML SYR SUBCUT SCH (08:43)
[2019-01-14] MEDS: GUAIFENESIN 600MG ER TABLET PO SCH (08:44)
[2019-01-14] MEDS ORDERED: AMLODIPINE 5MG TABLET PO SCH (09:00)
[2019-01-14] MEDS ORDERED: SODIUM BICARBONATE 4% (2.4MEQ) 5ML VIAL IV ONE (09:12)
[2019-01-14] MEDS ORDERED: LIDOCAINE HCL 1% 20ML VIAL (Pyxis) INJ ONE (09:12)
[2019-01-14] MEDS ORDERED: SODIUM PHOS,M-BASIC-D-BASIC 20 MM in DEXT 5% WATER 243.3333 ML IV SCH (10:30)
[2019-01-14 11:26] VITALS: BP 145/88
[2019-01-14 12:00] VITALS: BP 145/88
[2019-01-14] MEDS ORDERED: ENOXAPARIN 30MG/0.3ML SYR SUBCUT SCH (21:00)
== END 2019-01-14 14:30 | disposition home or self-care (01) | DRG 816 ==
LOC: ER 11:42 → ENRESERV 23:23 → 7WST 01-11 00:02 → EDBEDREQDT 01-11 00:18 → EDBEDREQTM 01-11 00:18 → EDBEDREQ 01-11 00:18
PROVIDERS: ADMIT Internal Medicine; ATTEND Internal Medicine
DX: T40.5X1A Poisoning by cocaine, accidental (unintentional), initial encounter (principal); J96.21 Acute and chronic respiratory failure with hypoxia; N17.9 Acute kidney failure, unspecified; G93.40 Encephalopathy, unspecified; I13.0 Hypertensive heart and chronic kidney disease with heart failure and stage 1 through stage 4 chronic kidney disease, or unspecified chronic kidney disease; I50.22 Chronic systolic (congestive) heart failure; E11.22 Type 2 diabetes mellitus with diabetic chronic kidney disease; E87.8 Other disorders of electrolyte and fluid balance, not elsewhere classified; D64.9 Anemia, unspecified; E78.5 Hyperlipidemia, unspecified; F14.10 Cocaine abuse, uncomplicated; F17.210 Nicotine dependence, cigarettes, uncomplicated; F31.9 Bipolar disorder, unspecified; G40.909 Epilepsy, unspecified, not intractable, without status epilepticus; I42.9 Cardiomyopathy, unspecified; J68.0 Bronchitis and pneumonitis due to chemicals, gases, fumes and vapors; M19.90 Unspecified osteoarthritis, unspecified site; N18.3 Chronic kidney disease, stage 3 (moderate); Z99.81 Dependence on supplemental oxygen; Z86.718 Personal history of other venous thrombosis and embolism; Z86.711 Personal history of pulmonary embolism; Z79.899 Other long term (current) drug therapy; Z88.8 Allergy status to other drugs, medicaments and biological substances; Z82.49 Family history of ischemic heart disease and other diseases of the circulatory system; Z83.3 Family history of diabetes mellitus; Y92.89 Other specified places as the place of occurrence of the external cause; Z71.51 Drug abuse counseling and surveillance of drug abuser
CPT/HCPCS: 36415; 36600; 71045; 76770; 80048; 80305; 81003; 82375; 82550; 82805; 82962; 83735; 83880; 84100; 84484; 85379; 93005; 93970; 94640; 99285; J1650; J2060; J2270; J2920; J3490; J7030; J7060; J7512; J7611; J7620; J7626

== ENCOUNTER 2019-02-06 11:24 | Emergency (ER) | payer OTHER ==
[~2019-02-06] VITALS: Ht 167.6 cm; Wt 80.0 kg
[~2019-02-06 11:24] MED LIST changes: -BENA40TA9 PO; -FURO-151 PO; -IBUP-2029 PO; -LEVO500T2 PO; -PRED-276 PO
[2019-02-06] MEDS ORDERED: IPRATROPIUM BROMIDE (0.02%) 0.5MG/2.5ML NEB HHN STA (11:45)
[2019-02-06] MEDS ORDERED: ASPIRIN 81MG TABLET PO ONE (11:45)
[2019-02-06] MEDS ORDERED: BUDESONIDE 0.5MG/2ML NEB HHN ONE (11:45)
[2019-02-06] MEDS ORDERED: METHYLPREDNISOLONE SOD SUCC 125 MG/2 ML VIAL IV STA (11:45)
[2019-02-06] MEDS ORDERED: ALBUTEROL (0.083%) 2.5MG/3ML NEB HHN STA (11:45)
[2019-02-06 12:16] LABS: BASOPHILS % 0.8 % (0.0-2.0); EOSINOPHILS % 2.1 % (0.0-5.0); HEMATOCRIT. 37.5 % (36.0-48.0); LYMPHOCYTES % 31.5 % (20.0-50.0); MEAN CORPUSCULAR HEMOGLOBIN 29.2 pg (28.0-32.0); MEAN CORPUSCULAR VOLUME 90.9 fL (81.0-99.0); MONOCYTES % 10.8 % (2.0-8.0); NEUTROPHILS % 54.8 % (40.0-76.0); RED BLOOD CELL COUNT 4.12 mill/uL (4.2-5.4); RED CELL DISTRIBUTION WIDTH 16.5 % (11.6-14.6)
[2019-02-06 12:23] LABS: CHLORIDE 116 mEq/L (98-107)
[2019-02-06 12:38] LABS: PLATELET 151 x1000/uL (130-400)
[2019-02-06] MEDS ORDERED: ALBUTEROL (0.083%) 2.5MG/3ML NEB HHN NR (17:00)
[2019-02-06] MEDS ORDERED: IPRATROPIUM BROMIDE (0.02%) 0.5MG/2.5ML NEB HHN NR (17:00)
[2019-02-06] MEDS ORDERED: BUDESONIDE 0.5MG/2ML NEB HHN NR (17:00)
[2019-02-06 21:48] VITALS: BP 143/85
== END 2019-02-06 23:45 | disposition home or self-care (01) ==
LOC: ER 12:23
DX: J44.1 Chronic obstructive pulmonary disease with (acute) exacerbation (principal); G40.909 Epilepsy, unspecified, not intractable, without status epilepticus; E11.9 Type 2 diabetes mellitus without complications; I10 Essential (primary) hypertension; Z88.8 Allergy status to other drugs, medicaments and biological substances
CPT/HCPCS: 36415; 71045; 80053; 83880; 84484; 85025; 93005; 94644; 96374; 99285; J2930; J7611; J7626; Z7610

== ENCOUNTER 2019-02-27 14:42 | Emergency (ER) | payer OTHER ==
[~2019-02-27] VITALS: Ht 175.3 cm; Wt 91.0 kg
[2019-02-27] MEDS ORDERED: LORAZEPAM 2MG/ML CPJ IV ONE (15:00)
[2019-02-27 15:22] LABS: EOSINOPHILS % 2.3 % (0.0-5.0); HEMATOCRIT. 34.9 % (36.0-48.0); HEMOGLOBIN. 11.4 g/dL (12.0-16.0); LYMPHOCYTES % 18.4 % (20.0-50.0); MEAN CORPUSCULAR HEMOGLOBIN 28.8 pg (28.0-32.0); MEAN CORPUSCULAR VOLUME 88.3 fL (81.0-99.0); MEAN PLATELET VOLUME 9.8 fl (7.4-10.4); MONOCYTES % 12.5 % (2.0-8.0); NEUTROPHILS % 65.8 % (40.0-76.0); PLATELET 250 x1000/uL (130-400); RED BLOOD CELL COUNT 3.96 mill/uL (4.2-5.4); RED CELL DISTRIBUTION WIDTH 14.9 % (11.6-14.6)
[2019-02-27 15:24] LABS: CHLORIDE 105 mEq/L (98-107)
[2019-02-27 15:28] LABS: ETHANOL BLOOD < 10 mg/dL
[2019-02-27 15:33] LABS: CLARITY URINE CLEAR (CLEAR); COLOR URINE YELLOW (YELLOW); KETONES URINE 1+ (NEGATIVE); LEUKOCYTE ESTERASE URINE 1+ (NEGATIVE); NITRITE URINE NEGATIVE (NEGATIVE); OCCULT BLOOD URINE NEGATIVE (NEGATIVE); PROTEIN URINE TRACE (NEGATIVE); SPECIFIC GRAVITY URINE 1.018 (1.005-1.030); UROBILINOGEN URINE 0.2 E.U./dL (0.2-1.0)
[2019-02-27 15:54] LABS: *AMPHETAMINES SCREEN URINE NEGATIVE (NEGATIVE); *BARBITURATES SCREEN URINE NEGATIVE (NEGATIVE); *BENZODIAZEPINES SCREEN URINE NEGATIVE (NEGATIVE); CANNABINOID URINE SCREEN PRESUMTIVE POSITIVE (NEGATIVE); PHENCYCLIDINE URINE SCREEN NEGATIVE (NEGATIVE)
[2019-02-27 15:55] LABS: *COCAINE SCREEN URINE PRESUMTIVE POSITIVE (NEGATIVE); METHADONE URINE SCREEN NEGATIVE (NEGATIVE); OPIATES URINE SCREEN NEGATIVE (NEGATIVE)
[2019-02-27 20:03] VITALS: BP 148/89
== END 2019-02-27 20:11 | disposition home or self-care (01) ==
LOC: ER 14:42
DX: F12.129 Cannabis abuse with intoxication, unspecified (principal); R06.00 Dyspnea, unspecified; I11.9 Hypertensive heart disease without heart failure; E11.9 Type 2 diabetes mellitus without complications; J44.9 Chronic obstructive pulmonary disease, unspecified; G40.909 Epilepsy, unspecified, not intractable, without status epilepticus; Z88.8 Allergy status to other drugs, medicaments and biological substances
CPT/HCPCS: 36415; 71045; 80053; 80305; 80307; 80320; 80329; 81003; 84484; 85025; 93005; 96374; 99284; J2060; G0480

== ENCOUNTER 2019-05-17 12:25 | Emergency (ER) | payer OTHER ==
[~2019-05-17] VITALS: Ht 170.2 cm; Wt 80.0 kg
[2019-05-17 12:42] VITALS: BP 107/85
[2019-05-17] MEDS ORDERED: METHYLPREDNISOLONE SOD SUCC 125 MG/2 ML VIAL IV STA (13:28)
[2019-05-17] MEDS ORDERED: IPRATROPIUM BROMIDE (0.02%) 0.5MG/2.5ML NEB HHN STA (13:28)
[2019-05-17] MEDS ORDERED: ALBUTEROL (0.083%) 2.5MG/3ML NEB HHN STA (13:28)
[2019-05-17 15:05] LABS: BASOPHILS % 0.8 % (0.0-2.0); EOSINOPHILS % 0.9 % (0.0-5.0); HEMATOCRIT. 39.4 % (36.0-48.0); HEMOGLOBIN. 12.6 g/dL (12.0-16.0); MEAN CORPUSCULAR HEMOGLOBIN 28.4 pg (28.0-32.0); MEAN CORPUSCULAR VOLUME 88.8 fL (81.0-99.0); MEAN PLATELET VOLUME 11.4 fl (7.4-10.4); MONOCYTES % 11.4 % (2.0-8.0); NEUTROPHILS % 73.9 % (40.0-76.0); PLATELET 166 x1000/uL (130-400); RED BLOOD CELL COUNT 4.44 mill/uL (4.2-5.4); RED CELL DISTRIBUTION WIDTH 15.6 % (11.6-14.6)
[2019-05-17 15:09] LABS: CHLORIDE 109 mEq/L (98-107)
== END 2019-05-17 17:20 | disposition left against medical advice (07) ==
LOC: ER 12:25
DX: J45.901 Unspecified asthma with (acute) exacerbation (principal); J44.9 Chronic obstructive pulmonary disease, unspecified; F31.9 Bipolar disorder, unspecified; I50.9 Heart failure, unspecified; N18.9 Chronic kidney disease, unspecified; R56.9 Unspecified convulsions; Z88.8 Allergy status to other drugs, medicaments and biological substances
CPT/HCPCS: 36415; 71045; 80053; 83880; 84484; 85025; 93005; 94640; 99284; J7611; Z7610

== ENCOUNTER 2019-05-17 22:26 | Emergency (ER) | payer OTHER ==
[~2019-05-17] VITALS: Ht 170.2 cm; Wt 80.0 kg
[2019-05-17] MEDS ORDERED: IPRATROPIUM BROMIDE (0.02%) 0.5MG/2.5ML NEB HHN STA (23:32)
[2019-05-17] MEDS ORDERED: PREDNISONE 20MG TABLET PO STA (23:32)
[2019-05-17] MEDS ORDERED: HYDROCODONE/ACETAMINOPHEN 5/325MG TABLET PO ONE (23:45)
[2019-05-17] MEDS: ALBUTEROL (0.083%) 2.5MG/3ML NEB HHN SCH (23:54)
[2019-05-18] MEDS: ALBUTEROL (0.083%) 2.5MG/3ML NEB HHN SCH ×2 (01:10→02:24)
[2019-05-18 01:33] LABS: BASOPHILS % 0.4 % (0.0-2.0); EOSINOPHILS % 1.2 % (0.0-5.0); HEMATOCRIT. 34.8 % (36.0-48.0); HEMOGLOBIN. 11.1 g/dL (12.0-16.0); LYMPHOCYTES % 13.6 % (20.0-50.0); MEAN CORPUSCULAR HEMOGLOBIN 28.1 pg (28.0-32.0); MEAN CORPUSCULAR VOLUME 88.2 fL (81.0-99.0); MONOCYTES % 12.7 % (2.0-8.0); NEUTROPHILS % 72.1 % (40.0-76.0); PLATELET 148 x1000/uL (130-400); RED BLOOD CELL COUNT 3.94 mill/uL (4.2-5.4); RED CELL DISTRIBUTION WIDTH 15.8 % (11.6-14.6)
[2019-05-18 01:41] LABS: CHLORIDE 110 mEq/L (98-107)
[2019-05-18 02:33] VITALS: BP 159/96
== END 2019-05-18 03:34 | disposition home or self-care (01) ==
LOC: ER 22:26
DX: J44.9 Chronic obstructive pulmonary disease, unspecified (principal); R06.00 Dyspnea, unspecified; R56.9 Unspecified convulsions; Z88.8 Allergy status to other drugs, medicaments and biological substances
CPT/HCPCS: 36415; 71045; 80053; 83880; 84484; 85025; 93005; 94640; 99285; J7512; J7611; Z7610

== ENCOUNTER 2019-05-29 23:41 | Emergency (ER) | payer OTHER ==
[~2019-05-29] VITALS: Ht 167.6 cm; Wt 82.0 kg
[2019-05-30 01:41] LABS: CHLORIDE 113 mEq/L (98-107)
[2019-05-30 01:43] LABS: BASOPHILS % 0.6 % (0.0-2.0); EOSINOPHILS % 4.7 % (0.0-5.0); HEMATOCRIT. 37.4 % (36.0-48.0); HEMOGLOBIN. 11.9 g/dL (12.0-16.0); LYMPHOCYTES % 20.5 % (20.0-50.0); MEAN CORPUSCULAR HEMOGLOBIN 28.2 pg (28.0-32.0); MEAN CORPUSCULAR VOLUME 88.8 fL (81.0-99.0); MEAN PLATELET VOLUME 9.2 fl (7.4-10.4); MONOCYTES % 12.3 % (2.0-8.0); NEUTROPHILS % 61.9 % (40.0-76.0); PLATELET 255 x1000/uL (130-400); RED BLOOD CELL COUNT 4.21 mill/uL (4.2-5.4); RED CELL DISTRIBUTION WIDTH 16.8 % (11.6-14.6)
[2019-05-30 01:45] LABS: ETHANOL BLOOD < 10 mg/dL
[2019-05-30 01:54] LABS: CLARITY URINE CLEAR (CLEAR); COLOR URINE YELLOW (YELLOW); KETONES URINE NEGATIVE (NEGATIVE); LEUKOCYTE ESTERASE URINE NEGATIVE (NEGATIVE); NITRITE URINE NEGATIVE (NEGATIVE); OCCULT BLOOD URINE NEGATIVE (NEGATIVE); PROTEIN URINE TRACE (NEGATIVE); SPECIFIC GRAVITY URINE 1.014 (1.005-1.030); UROBILINOGEN URINE 0.2 E.U./dL (0.2-1.0)
[2019-05-30 02:16] LABS: *AMPHETAMINES SCREEN URINE NEGATIVE (NEGATIVE); *BARBITURATES SCREEN URINE NEGATIVE (NEGATIVE); *BENZODIAZEPINES SCREEN URINE NEGATIVE (NEGATIVE); *COCAINE SCREEN URINE PRESUMTIVE POSITIVE (NEGATIVE); METHADONE URINE SCREEN NEGATIVE (NEGATIVE)
[2019-05-30 02:17] LABS: CANNABINOID URINE SCREEN PRESUMTIVE POSITIVE (NEGATIVE); OPIATES URINE SCREEN NEGATIVE (NEGATIVE); PHENCYCLIDINE URINE SCREEN NEGATIVE (NEGATIVE)
[2019-05-31] MEDS ORDERED: VITAMIN E ACETATE 400 UNITS CAPSULE PO SCH (09:00)
[2019-05-31] MEDS ORDERED: ACETAMINOPHEN 325MG TABLET PO ONE ×2 (12:30→19:15)
[2019-05-31] MEDS ORDERED: ALBUTEROL (0.083%) 2.5MG/3ML NEB HHN ONE ×2 (19:15→20:15)
[2019-05-31] MEDS ORDERED: PREDNISONE 20MG TABLET PO ONE (19:15)
[2019-05-31] MEDS ORDERED: HYDROCHLOROTHIAZIDE 25MG TABLET PO ONE (19:15)
[2019-05-31 20:43] VITALS: BP 160/79
== END 2019-05-31 21:05 ==
LOC: ER 23:41
DX: R45.851 Suicidal ideations (principal); F14.10 Cocaine abuse, uncomplicated; R06.2 Wheezing; N28.9 Disorder of kidney and ureter, unspecified; R46.2 Strange and inexplicable behavior; F12.90 Cannabis use, unspecified, uncomplicated; I10 Essential (primary) hypertension; J45.909 Unspecified asthma, uncomplicated; J44.9 Chronic obstructive pulmonary disease, unspecified; G40.409 Other generalized epilepsy and epileptic syndromes, not intractable, without status epilepticus; Z88.8 Allergy status to other drugs, medicaments and biological substances; Z79.51 Long term (current) use of inhaled steroids; Z79.899 Other long term (current) drug therapy
CPT/HCPCS: 71045; 94640; 99285; J7512; J7610; Z7610

== ENCOUNTER 2019-07-15 16:33 | Inpatient (IN) | payer MEDICAID, OTHER ==
[~2019-07-15] VITALS: Ht 175.3 cm; Wt 92.5 kg
[2019-07-15] MEDS ORDERED: METHYLPREDNISOLONE SOD SUCC 125 MG/2 ML VIAL IV STA (16:35)
[2019-07-15] MEDS ORDERED: MAGNESIUM 2 G PREMIX 50 ML IV ONE (16:45)
[2019-07-15] MEDS ORDERED: LEVOFLOXACIN 500MG PREMIX 100 ML IV ONE (16:45)
[2019-07-15 17:21] LABS: BG BASE EXCESS 2.9 mmol/L (-2.0-2.0); BG CARBOXYHEMOGLOBIN 1.2 % (0.5-1.5); BG DEOXYHEMOGLOBIN 8.5 % (0.0-5.0); BG FRACTION INSPIRED OXYGEN 21; BG HCO3 ACT 27.4 mmol/L (22.0-26.0); BG METHEMOGLOBIN 0.3 % (0.0-1.5); BG OXYGEN SATURATION 91.4 % (92.0-98.5); BG PCO2 41.3 mmHg (35.0-45.0); BG PH 7.439 (7.350-7.450); BG PO2 57.2 mmHg (75.0-100.0); BG SAMPLE SITE RIGHT BRACHIAL; BG VENT MODE ROOM AIR
[2019-07-15] MEDS: ALBUTEROL 6.7GM HFA INHALER ORI PRN ×2 (17:30→17:46)
[2019-07-15 18:11] LABS: BASOPHILS % 0.9 % (0.0-2.0); EOSINOPHILS % 1.3 % (0.0-5.0); HEMATOCRIT. 39.5 % (36.0-48.0); HEMOGLOBIN. 12.7 g/dL (12.0-16.0); LYMPHOCYTES % 14.1 % (20.0-50.0); MEAN CORPUSCULAR VOLUME 90.4 fL (81.0-99.0); MEAN PLATELET VOLUME 10.3 fl (7.4-10.4); NEUTROPHILS % 73.7 % (40.0-76.0); PLATELET 285 x1000/uL (130-400); RED BLOOD CELL COUNT 4.37 mill/uL (4.2-5.4); RED CELL DISTRIBUTION WIDTH 16.4 % (11.6-14.6)
[2019-07-15 18:20] LABS: INR 1.2; PARTIAL THROMBOPLASTIN TIME 27.1 sec (23.4-31.0); PROTHROMBIN TIME 13.4 sec (9.6-11.0)
[2019-07-15 18:28] LABS: CHLORIDE 109 mEq/L (98-107)
[2019-07-15 18:33] LABS: ETHANOL BLOOD < 10 mg/dL
[2019-07-15 18:53] LABS: CLARITY URINE CLOUDY (CLEAR); KETONES URINE TRACE (NEGATIVE); LEUKOCYTE ESTERASE URINE 3+ (NEGATIVE); NITRITE URINE NEGATIVE (NEGATIVE); OCCULT BLOOD URINE 1+ (NEGATIVE); PH URINE 5.5 (4.5-8.0); PROTEIN URINE 1+ (NEGATIVE); SPECIFIC GRAVITY URINE 1.022 (1.005-1.030)
[2019-07-15 19:00] LABS: COLOR URINE YELLOW (YELLOW)
[2019-07-15 19:04] LABS: *AMPHETAMINES SCREEN URINE NEGATIVE (NEGATIVE); *BARBITURATES SCREEN URINE NEGATIVE (NEGATIVE); *BENZODIAZEPINES SCREEN URINE NEGATIVE (NEGATIVE); *COCAINE SCREEN URINE PRESUMTIVE POSITIVE (NEGATIVE)
[2019-07-15 19:05] LABS: CANNABINOID URINE SCREEN PRESUMTIVE POSITIVE (NEGATIVE); METHADONE URINE SCREEN NEGATIVE (NEGATIVE); OPIATES URINE SCREEN PRESUMTIVE POSITIVE (NEGATIVE); PHENCYCLIDINE URINE SCREEN NEGATIVE (NEGATIVE)
[2019-07-15] MEDS ORDERED: MAGNESIUM/ALUMINUM HYDROXIDE/SIMETHICONE 30ML UDC PO PRN (21:45)
[2019-07-15] MEDS ORDERED: HYDROCODONE/ACETAMINOPHEN 5/325MG TABLET PO PRN (21:45)
[2019-07-15] MEDS ORDERED: DOCUSATE SODIUM 100MG CAPSULE PO PRN (21:45)
[2019-07-15] MEDS ORDERED: IPRATROPIUM/ALBUTEROL 0.5-3(2.5)MG/3ML NEB NEB PRN (21:45)
[2019-07-15] MEDS ORDERED: ONDANSETRON HCL 4MG/2ML INJ IV PRN (21:45)
[2019-07-15] MEDS ORDERED: BUDESONIDE 0.5MG/2ML NEB HHN SCH (21:45)
[2019-07-15] MEDS ORDERED: LORAZEPAM 2MG/ML CPJ IV PRN (21:45)
[2019-07-16] VITALS (9 sets, daily range): BP systolic 122–165; BP diastolic 62–108
[2019-07-16] MEDS ORDERED: AZITHROMYCIN 500 MG in DEXT 5% WATER 250 ML IV SCH ×2
[2019-07-16] MEDS: CLONIDINE 0.1MG TABLET PO PRN ×3 (00:36→16:04)
[2019-07-16] MEDS ORDERED: ESCI5TAB12 MT (02:42)
[2019-07-16] MEDS ORDERED: DIVA500T51 PO (02:42)
[2019-07-16] MEDS ORDERED: MONT10TA26 MT (02:42)
[2019-07-16] MEDS ORDERED: AMLO10TA80 MT (02:42)
[2019-07-16] MEDS ORDERED: BENA40TA9 MT (02:42)
[2019-07-16] MEDS ORDERED: FURO40TA5 MT (02:42)
[2019-07-16 06:55] LABS: BASOPHILS % 0.3 % (0.0-2.0); HEMATOCRIT. 37.8 % (36.0-48.0); HEMOGLOBIN. 12.2 g/dL (12.0-16.0); LYMPHOCYTES % 12.1 % (20.0-50.0); MEAN CORPUSCULAR HEMOGLOBIN 28.9 pg (28.0-32.0); MEAN CORPUSCULAR VOLUME 89.4 fL (81.0-99.0); MEAN PLATELET VOLUME 10.3 fl (7.4-10.4); MONOCYTES % 4.1 % (2.0-8.0); NEUTROPHILS % 83.5 % (40.0-76.0); PLATELET 242 x1000/uL (130-400); RED BLOOD CELL COUNT 4.23 mill/uL (4.2-5.4)
[2019-07-16 07:15] LABS: CREATINE KINASE 46 IU/L (26-192)
[2019-07-16 07:18] LABS: CREATINE KINASE MB FRACTION < 1.0 ng/mL (0.5-3.6); LDL CHOLESTEROL 75 mg/dL (5-100)
[2019-07-16 07:21] LABS: HDL CHOLESTEROL 82 mg/dL (40-59)
[2019-07-16] MEDS ORDERED: ENOXAPARIN 40MG/0.4ML SYR SUBCUT SCH (09:00)
[2019-07-16] MEDS: ENOXAPARIN 40MG/0.4ML SYR SUBCUT SCH (09:20)
[2019-07-16] MEDS: GUAIFENESIN 200MG/10ML SUGAR FREE UDC PO PRN ×2 (09:22→13:17)
[2019-07-16] MEDS: ACETAMINOPHEN 325MG TABLET PO PRN (16:04)
[2019-07-16] MEDS ORDERED: DEXTROSE 50% WATER 50ML SYRINGE IV PRN (17:30)
[2019-07-16] MEDS ORDERED: NON FORMULARY PATIENT HOME MED XX SCH (17:30)
[2019-07-16] MEDS: FUROSEMIDE 40MG/4ML VIAL IVP SCH (18:44)
[2019-07-16] MEDS: ATORVASTATIN CALCIUM 10MG TABLET PO SCH (18:44)
[2019-07-16] MEDS: AMLODIPINE 10MG TABLET PO SCH (18:53)
[2019-07-16 19:04] LABS: CREATINE KINASE 34 IU/L (26-192)
[2019-07-16 19:06] LABS: CREATINE KINASE MB FRACTION < 1.0 ng/mL (0.5-3.6)
[2019-07-16] MEDS ORDERED: MAGNESIUM 2 G PREMIX 50 ML IV ONE (20:00)
[2019-07-16] MEDS: MONTELUKAST SODIUM 10MG TABLET PO SCH (20:57)
[2019-07-16] MEDS: AZITHROMYCIN 500MG in DEXTROSE 5% WATER 250ML IV SCH (20:57)
[2019-07-16] MEDS: DIVALPROEX SODIUM 500MG ER TABLET PO SCH (20:58)
[2019-07-16] MEDS: QUETIAPINE FUMARATE 50MG TABLET PO SCH (20:58)
[2019-07-16] MEDS: CITALOPRAM HYDROBROMIDE 10MG TABLET PO SCH (20:58)
[2019-07-16] MEDS: INSULIN LISPRO 100 UNITS/ML SUBCUT SCH (21:00)
[2019-07-16] MEDS: BLOOD SUGAR DIAGNOSTIC STRIP TEST SCH (21:38)
[2019-07-17] VITALS: BP 115/65
[2019-07-17] MEDS ORDERED: CEFTRIAXONE 1 G PREMIX 50 ML IV NR (01:00)
[2019-07-17 04:00] VITALS: BP 110/60
[2019-07-17] MEDS: BLOOD SUGAR DIAGNOSTIC STRIP TEST SCH ×4 (05:57→21:00)
[2019-07-17] MEDS: INSULIN LISPRO 100 UNITS/ML SUBCUT SCH ×4 (05:57→21:00)
[2019-07-17 08:00] VITALS: BP 138/78
[2019-07-17] MEDS: CITALOPRAM HYDROBROMIDE 10MG TABLET PO SCH (08:59)
[2019-07-17] MEDS: FUROSEMIDE 40MG/4ML VIAL IVP SCH (08:59)
[2019-07-17] MEDS: DIVALPROEX SODIUM 500MG ER TABLET PO SCH (08:59)
[2019-07-17] MEDS: ATORVASTATIN CALCIUM 10MG TABLET PO SCH (08:59)
[2019-07-17] MEDS: ENOXAPARIN 40MG/0.4ML SYR SUBCUT SCH (09:00)
[2019-07-17] MEDS: MONTELUKAST SODIUM 10MG TABLET PO SCH (09:04)
[2019-07-17] MEDS: AMLODIPINE 10MG TABLET PO SCH (09:04)
[2019-07-17 12:00] VITALS: BP 132/75
[2019-07-17 12:29] LABS: EOSINOPHILS % 1.5 % (0.0-5.0); HEMATOCRIT. 35.8 % (36.0-48.0); HEMOGLOBIN. 11.5 g/dL (12.0-16.0); LYMPHOCYTES % 23.8 % (20.0-50.0); MEAN CORPUSCULAR HEMOGLOBIN 28.7 pg (28.0-32.0); MEAN CORPUSCULAR VOLUME 89.2 fL (81.0-99.0); MONOCYTES % 11.8 % (2.0-8.0); NEUTROPHILS % 61.9 % (40.0-76.0); PLATELET 222 x1000/uL (130-400); RED BLOOD CELL COUNT 4.01 mill/uL (4.2-5.4)
[2019-07-17 16:00] VITALS: BP 121/79
[2019-07-17] MEDS: DILTIAZEM HCL 60MG TABLET PO SCH ×2 (17:07→20:24)
[2019-07-17] MEDS ORDERED: IPRATROPIUM/ALBUTEROL 0.5-3(2.5)MG/3ML NEB HHN PRN (18:45)
[2019-07-17 20:00] VITALS: BP 135/80
[2019-07-17] MEDS: CEFTRIAXONE 1 G PREMIX 50 ML IV SCH (20:23)
[2019-07-17] MEDS: QUETIAPINE FUMARATE 50MG TABLET PO SCH (20:23)
[2019-07-17] MEDS: AZITHROMYCIN 500MG in DEXTROSE 5% WATER 250ML IV SCH (20:23)
[2019-07-17] MEDS: GUAIFENESIN 600MG ER TABLET PO SCH (23:52)
[2019-07-18] VITALS: BP 108/68
[2019-07-18 04:00] VITALS: BP 121/81
[2019-07-18] MEDS: BLOOD SUGAR DIAGNOSTIC STRIP TEST SCH ×4 (06:13→20:11)
[2019-07-18] MEDS: INSULIN LISPRO 100 UNITS/ML SUBCUT SCH ×4 (06:14→20:11)
[2019-07-18] MEDS: DILTIAZEM HCL 60MG TABLET PO SCH ×3 (06:37→21:39)
[2019-07-18 07:26] LABS: HEMATOCRIT. 34.6 % (36.0-48.0); HEMOGLOBIN. 11.2 g/dL (12.0-16.0); MEAN CORPUSCULAR HEMOGLOBIN 28.6 pg (28.0-32.0); MEAN CORPUSCULAR VOLUME 88.7 fL (81.0-99.0); MEAN PLATELET VOLUME 9.9 fl (7.4-10.4); PLATELET 215 x1000/uL (130-400)
[2019-07-18 08:00] VITALS: BP 138/90
[2019-07-18] MEDS: ENOXAPARIN 40MG/0.4ML SYR SUBCUT SCH (10:06)
[2019-07-18] MEDS: GUAIFENESIN 600MG ER TABLET PO SCH ×2 (10:06→20:11)
[2019-07-18] MEDS: MONTELUKAST SODIUM 10MG TABLET PO SCH (10:06)
[2019-07-18] MEDS: FUROSEMIDE 40MG/4ML VIAL IVP SCH (10:06)
[2019-07-18] MEDS: ATORVASTATIN CALCIUM 10MG TABLET PO SCH (10:06)
[2019-07-18] MEDS: CITALOPRAM HYDROBROMIDE 10MG TABLET PO SCH (10:07)
[2019-07-18 10:28] LABS: PLATELET ESTIMATE NORMAL
[2019-07-18 12:00] VITALS: BP 128/89
[2019-07-18] MEDS: DIVALPROEX SODIUM 500MG ER TABLET PO SCH (13:17)
[2019-07-18] MEDS ORDERED: IPRATROPIUM/ALBUTEROL 0.5-3(2.5)MG/3ML NEB HHN PRN (14:30)
[2019-07-18] MEDS: AZITHROMYCIN 500 MG TABLET PO SCH (15:50)
[2019-07-18 16:00] VITALS: BP 143/95
[2019-07-18 20:00] VITALS: BP 146/94
[2019-07-18] MEDS: CEFTRIAXONE 1 G PREMIX 50 ML IV SCH (20:11)
[2019-07-18] MEDS: QUETIAPINE FUMARATE 50MG TABLET PO SCH (20:11)
[2019-07-18] MEDS: METHYLPREDNISOLONE SOD SUCC 125 MG/2 ML VIAL IV SCH (21:39)
[2019-07-18] MEDS: IPRATROPIUM/ALBUTEROL 0.5-3(2.5)MG/3ML NEB HHN SCH (22:10)
[2019-07-19] VITALS: BP 117/62
[2019-07-19] MEDS: IPRATROPIUM/ALBUTEROL 0.5-3(2.5)MG/3ML NEB HHN SCH ×4 (01:20→20:45)
[2019-07-19 04:00] VITALS: BP 136/86
[2019-07-19] MEDS: DILTIAZEM HCL 60MG TABLET PO SCH ×3 (05:27→20:58)
[2019-07-19] MEDS: METHYLPREDNISOLONE SOD SUCC 125 MG/2 ML VIAL IV SCH ×3 (05:27→20:57)
[2019-07-19] MEDS: INSULIN LISPRO 100 UNITS/ML SUBCUT SCH ×3 (06:24→21:05)
[2019-07-19] MEDS: BLOOD SUGAR DIAGNOSTIC STRIP TEST SCH ×4 (06:24→20:49)
[2019-07-19 08:30] VITALS: BP 145/88
[2019-07-19] MEDS: ENOXAPARIN 40MG/0.4ML SYR SUBCUT SCH (08:51)
[2019-07-19] MEDS: MONTELUKAST SODIUM 10MG TABLET PO SCH (08:51)
[2019-07-19] MEDS: CITALOPRAM HYDROBROMIDE 10MG TABLET PO SCH (08:51)
[2019-07-19] MEDS: AZITHROMYCIN 500 MG TABLET PO SCH (08:51)
[2019-07-19] MEDS: ATORVASTATIN CALCIUM 10MG TABLET PO SCH (08:51)
[2019-07-19] MEDS: DIVALPROEX SODIUM 500MG ER TABLET PO SCH (08:51)
[2019-07-19] MEDS: GUAIFENESIN 600MG ER TABLET PO SCH ×2 (08:51→20:58)
[2019-07-19 11:54] VITALS: BP 135/65
[2019-07-19 16:00] VITALS: BP 131/71
[2019-07-19 20:00] VITALS: BP 132/80
[2019-07-19] MEDS: QUETIAPINE FUMARATE 50MG TABLET PO SCH (20:58)
[2019-07-19] MEDS: CEFTRIAXONE 1 G PREMIX 50 ML IV SCH (20:58)
[2019-07-20] VITALS (8 sets, daily range): BP systolic 112–148; BP diastolic 64–90
[2019-07-20] MEDS: IPRATROPIUM/ALBUTEROL 0.5-3(2.5)MG/3ML NEB HHN SCH ×4 (01:35→22:06)
[2019-07-20] MEDS: BLOOD SUGAR DIAGNOSTIC STRIP TEST SCH ×4 (06:03→20:05)
[2019-07-20] MEDS: DILTIAZEM HCL 60MG TABLET PO SCH ×3 (06:08→21:31)
[2019-07-20] MEDS: METHYLPREDNISOLONE SOD SUCC 125 MG/2 ML VIAL IV SCH (06:08)
[2019-07-20] MEDS: INSULIN LISPRO 100 UNITS/ML SUBCUT SCH ×4 (06:13→20:26)
[2019-07-20 06:38] LABS: HEMATOCRIT. 34.7 % (36.0-48.0); HEMOGLOBIN. 11.4 g/dL (12.0-16.0); MEAN PLATELET VOLUME 10.6 fl (7.4-10.4); PLATELET 203 x1000/uL (130-400); RED BLOOD CELL COUNT 3.94 mill/uL (4.2-5.4); RED CELL DISTRIBUTION WIDTH 15.8 % (11.6-14.6)
[2019-07-20] MEDS: MONTELUKAST SODIUM 10MG TABLET PO SCH (08:11)
[2019-07-20] MEDS: CITALOPRAM HYDROBROMIDE 10MG TABLET PO SCH (08:11)
[2019-07-20] MEDS: DIVALPROEX SODIUM 500MG ER TABLET PO SCH (08:11)
[2019-07-20] MEDS: ATORVASTATIN CALCIUM 10MG TABLET PO SCH (08:11)
[2019-07-20] MEDS: GUAIFENESIN 600MG ER TABLET PO SCH ×2 (08:12→20:15)
[2019-07-20] MEDS: ENOXAPARIN 40MG/0.4ML SYR SUBCUT SCH (08:12)
[2019-07-20] MEDS: GUAIFENESIN 200MG/10ML SUGAR FREE UDC PO PRN ×3 (09:16→21:31)
[2019-07-20] MEDS ORDERED: BUDESONIDE 0.5MG/2ML NEB HHN SCH (11:30)
[2019-07-20] MEDS: METHYLPREDNISOLONE SOD SUCC 40 MG/ML VIAL IV SCH ×2 (11:50→20:15)
[2019-07-20 13:46] LABS: PLATELET ESTIMATE NORMAL
[2019-07-20] MEDS: QUETIAPINE FUMARATE 50MG TABLET PO SCH (20:15)
[2019-07-20] MEDS: CEFTRIAXONE 1 G PREMIX 50 ML IV SCH (21:31)
[2019-07-21] VITALS: BP 155/77
[2019-07-21] MEDS: IPRATROPIUM/ALBUTEROL 0.5-3(2.5)MG/3ML NEB HHN SCH ×4 (03:33→21:16)
[2019-07-21 04:00] VITALS: BP 128/83
[2019-07-21] MEDS: METHYLPREDNISOLONE SOD SUCC 40 MG/ML VIAL IV SCH ×3 (05:09→18:30)
[2019-07-21] MEDS: DILTIAZEM HCL 60MG TABLET PO SCH ×3 (05:09→23:23)
[2019-07-21] MEDS: BLOOD SUGAR DIAGNOSTIC STRIP TEST SCH ×4 (06:14→20:39)
[2019-07-21] MEDS: INSULIN LISPRO 100 UNITS/ML SUBCUT SCH ×4 (06:20→20:39)
[2019-07-21 08:00] VITALS: BP 149/85
[2019-07-21] MEDS: ENOXAPARIN 40MG/0.4ML SYR SUBCUT SCH (08:23)
[2019-07-21] MEDS: ATORVASTATIN CALCIUM 10MG TABLET PO SCH (08:24)
[2019-07-21] MEDS: DIVALPROEX SODIUM 500MG ER TABLET PO SCH (08:24)
[2019-07-21] MEDS: GUAIFENESIN 600MG ER TABLET PO SCH ×2 (08:24→20:38)
[2019-07-21] MEDS: CITALOPRAM HYDROBROMIDE 10MG TABLET PO SCH (08:24)
[2019-07-21] MEDS: MONTELUKAST SODIUM 10MG TABLET PO SCH (08:25)
[2019-07-21] MEDS: ACETAMINOPHEN 325MG TABLET PO PRN ×2 (08:29→17:07)
[2019-07-21] MEDS ORDERED: BENZONATATE 100MG CAPSULE PO PRN (12:15)
[2019-07-21 12:22] VITALS: BP 132/66
[2019-07-21 16:06] VITALS: BP 131/77
[2019-07-21] MEDS: GUAIFENESIN 200MG/10ML SUGAR FREE UDC PO PRN (17:07)
[2019-07-21] MEDS ORDERED: TERBUTALINE SULFATE 1MG/ML VIAL SUBCUT NR (17:30)
[2019-07-21 20:00] VITALS: BP 129/70
[2019-07-21] MEDS: CEFTRIAXONE 1 G PREMIX 50 ML IV SCH (20:38)
[2019-07-21] MEDS: QUETIAPINE FUMARATE 50MG TABLET PO SCH (20:38)
[2019-07-22] VITALS: BP 153/91
[2019-07-22 00:45] VITALS: BP 146/82
[2019-07-22] MEDS: IPRATROPIUM/ALBUTEROL 0.5-3(2.5)MG/3ML NEB HHN SCH ×4 (01:38→22:16)
[2019-07-22 04:00] VITALS: BP 144/86
[2019-07-22] MEDS: METHYLPREDNISOLONE SOD SUCC 40 MG/ML VIAL IV SCH ×2 (04:20→16:58)
[2019-07-22] MEDS: BLOOD SUGAR DIAGNOSTIC STRIP TEST SCH ×4 (06:23→21:23)
[2019-07-22] MEDS: DILTIAZEM HCL 60MG TABLET PO SCH ×3 (06:29→21:17)
[2019-07-22] MEDS: INSULIN LISPRO 100 UNITS/ML SUBCUT SCH ×4 (06:31→21:28)
[2019-07-22 07:33] LABS: HEMATOCRIT. 34.1 % (36.0-48.0); HEMOGLOBIN. 11.1 g/dL (12.0-16.0); MEAN CORPUSCULAR HEMOGLOBIN 28.6 pg (28.0-32.0); MEAN CORPUSCULAR VOLUME 88.1 fL (81.0-99.0); MEAN PLATELET VOLUME 10.6 fl (7.4-10.4); PLATELET 188 x1000/uL (130-400); RED BLOOD CELL COUNT 3.87 mill/uL (4.2-5.4)
[2019-07-22 08:00] VITALS: BP 150/80
[2019-07-22] MEDS: CITALOPRAM HYDROBROMIDE 10MG TABLET PO SCH (08:41)
[2019-07-22] MEDS: MONTELUKAST SODIUM 10MG TABLET PO SCH (08:41)
[2019-07-22] MEDS: DIVALPROEX SODIUM 500MG ER TABLET PO SCH (08:41)
[2019-07-22] MEDS: GUAIFENESIN 600MG ER TABLET PO SCH ×2 (08:41→21:16)
[2019-07-22] MEDS: ATORVASTATIN CALCIUM 10MG TABLET PO SCH (08:41)
[2019-07-22] MEDS: ENOXAPARIN 40MG/0.4ML SYR SUBCUT SCH (08:42)
[2019-07-22 12:00] VITALS: BP 141/72
[2019-07-22 16:00] VITALS: BP 140/73
[2019-07-22 21:15] LABS: HEMOGLOBIN. 11.6 g/dL (12.0-16.0); MEAN CORPUSCULAR HEMOGLOBIN 28.6 pg (28.0-32.0); MEAN CORPUSCULAR VOLUME 88.9 fL (81.0-99.0); MEAN PLATELET VOLUME 10.8 fl (7.4-10.4); PLATELET 204 x1000/uL (130-400); RED BLOOD CELL COUNT 4.04 mill/uL (4.2-5.4); RED CELL DISTRIBUTION WIDTH 15.7 % (11.6-14.6)
[2019-07-22] MEDS: CEFTRIAXONE 1 G PREMIX 50 ML IV SCH (21:16)
[2019-07-22] MEDS: QUETIAPINE FUMARATE 50MG TABLET PO SCH (21:17)
[2019-07-22 22:34] LABS: PLATELET ESTIMATE NORMAL
[2019-07-22 22:50] LABS: PLATELET ESTIMATE NORMAL
[2019-07-23] VITALS: BP 146/80
[2019-07-23] MEDS: IPRATROPIUM/ALBUTEROL 0.5-3(2.5)MG/3ML NEB HHN SCH ×4 (00:53→16:24)
[2019-07-23 04:00] VITALS: BP 102/54
[2019-07-23] MEDS: DILTIAZEM HCL 60MG TABLET PO SCH ×3 (06:00→21:00)
[2019-07-23] MEDS: BLOOD SUGAR DIAGNOSTIC STRIP TEST SCH ×4 (06:28→20:58)
[2019-07-23] MEDS: INSULIN LISPRO 100 UNITS/ML SUBCUT SCH ×4 (07:56→20:58)
[2019-07-23 08:00] VITALS: BP 147/84
[2019-07-23] MEDS: ATORVASTATIN CALCIUM 10MG TABLET PO SCH (08:00)
[2019-07-23] MEDS: METHYLPREDNISOLONE SOD SUCC 40 MG/ML VIAL IV SCH ×2 (08:00→17:14)
[2019-07-23] MEDS: ENOXAPARIN 40MG/0.4ML SYR SUBCUT SCH (08:00)
[2019-07-23] MEDS: CITALOPRAM HYDROBROMIDE 10MG TABLET PO SCH (08:00)
[2019-07-23] MEDS: MONTELUKAST SODIUM 10MG TABLET PO SCH (08:00)
[2019-07-23] MEDS: GUAIFENESIN 600MG ER TABLET PO SCH ×2 (08:00→20:53)
[2019-07-23] MEDS: DIVALPROEX SODIUM 500MG ER TABLET PO SCH (08:00)
[2019-07-23 12:00] VITALS: BP 125/65
[2019-07-23] MEDS: THEOPHYLLINE ANHYDROUS 80 MG/15 ML 120ML PO SCH ×2 (13:26→17:14)
[2019-07-23 16:00] VITALS: BP 141/84
[2019-07-23] MEDS: HYDROCODONE/ACETAMINOPHEN 5/325MG TABLET PO PRN (17:27)
[2019-07-23] MEDS: GUAIFENESIN 200MG/10ML SUGAR FREE UDC PO PRN (17:34)
[2019-07-23 20:00] VITALS: BP 169/84
[2019-07-23] MEDS: QUETIAPINE FUMARATE 50MG TABLET PO SCH (20:54)
[2019-07-23] MEDS: CLONIDINE 0.1MG TABLET PO PRN (20:54)
[2019-07-24] VITALS: BP 150/81
[2019-07-24] MEDS: THEOPHYLLINE ANHYDROUS 80 MG/15 ML 120ML PO SCH ×4 (00:41→17:36)
[2019-07-24 04:00] VITALS: BP 142/83
[2019-07-24 05:40] LABS: HEMATOCRIT. 34.8 % (36.0-48.0); HEMOGLOBIN. 11.3 g/dL (12.0-16.0); MEAN CORPUSCULAR HEMOGLOBIN 28.7 pg (28.0-32.0); MEAN CORPUSCULAR VOLUME 88.3 fL (81.0-99.0); MEAN PLATELET VOLUME 11.2 fl (7.4-10.4); PLATELET 183 x1000/uL (130-400); RED BLOOD CELL COUNT 3.94 mill/uL (4.2-5.4); RED CELL DISTRIBUTION WIDTH 16.1 % (11.6-14.6)
[2019-07-24] MEDS: DILTIAZEM HCL 60MG TABLET PO SCH ×3 (06:26→21:13)
[2019-07-24] MEDS: BLOOD SUGAR DIAGNOSTIC STRIP TEST SCH ×4 (06:29→21:08)
[2019-07-24 08:00] VITALS: BP 155/87
[2019-07-24] MEDS: DIVALPROEX SODIUM 500MG ER TABLET PO SCH (08:26)
[2019-07-24] MEDS: MONTELUKAST SODIUM 10MG TABLET PO SCH (08:26)
[2019-07-24] MEDS: GUAIFENESIN 600MG ER TABLET PO SCH ×2 (08:26→21:10)
[2019-07-24] MEDS: CITALOPRAM HYDROBROMIDE 10MG TABLET PO SCH (08:26)
[2019-07-24] MEDS: ATORVASTATIN CALCIUM 10MG TABLET PO SCH (08:26)
[2019-07-24] MEDS: METHYLPREDNISOLONE SOD SUCC 40 MG/ML VIAL IV SCH (08:27)
[2019-07-24] MEDS: ENOXAPARIN 40MG/0.4ML SYR SUBCUT SCH (08:27)
[2019-07-24] MEDS: INSULIN LISPRO 100 UNITS/ML SUBCUT SCH ×4 (08:28→21:08)
[2019-07-24] MEDS: IPRATROPIUM/ALBUTEROL 0.5-3(2.5)MG/3ML NEB HHN SCH ×2 (09:06→21:24)
[2019-07-24 12:00] VITALS: BP 130/70
[2019-07-24] MEDS: HYDROCODONE/ACETAMINOPHEN 5/325MG TABLET PO PRN ×2 (15:01→21:02)
[2019-07-24 16:00] VITALS: BP 140/85
[2019-07-24 17:48] LABS: PLATELET ESTIMATE NORMAL
[2019-07-24 20:00] VITALS: BP 128/69
[2019-07-24] MEDS ORDERED: SODIUM POLYSTYRENE SULFONATE 15 G/60 ML BOT PO NR (20:00)
[2019-07-24] MEDS: QUETIAPINE FUMARATE 50MG TABLET PO SCH (21:02)
[2019-07-25] VITALS: BP 133/68
[2019-07-25] MEDS: THEOPHYLLINE ANHYDROUS 80 MG/15 ML 120ML PO SCH ×4 (01:28→17:49)
[2019-07-25] MEDS: IPRATROPIUM/ALBUTEROL 0.5-3(2.5)MG/3ML NEB HHN SCH ×4 (02:27→21:59)
[2019-07-25 04:00] VITALS: BP 145/89
[2019-07-25] MEDS: DILTIAZEM HCL 60MG TABLET PO SCH ×3 (05:32→22:17)
[2019-07-25 06:05] LABS: HEMATOCRIT. 32.6 % (36.0-48.0); HEMOGLOBIN. 10.7 g/dL (12.0-16.0); LYMPHOCYTES % 12.3 % (20.0-50.0); MEAN CORPUSCULAR HEMOGLOBIN 28.9 pg (28.0-32.0); MEAN CORPUSCULAR VOLUME 88.1 fL (81.0-99.0); MONOCYTES % 14.8 % (2.0-8.0); NEUTROPHILS % 72.9 % (40.0-76.0); PLATELET 162 x1000/uL (130-400); RED BLOOD CELL COUNT 3.69 mill/uL (4.2-5.4); RED CELL DISTRIBUTION WIDTH 15.9 % (11.6-14.6)
[2019-07-25] MEDS: INSULIN LISPRO 100 UNITS/ML SUBCUT SCH ×5 (06:59→20:26)
[2019-07-25] MEDS: BLOOD SUGAR DIAGNOSTIC STRIP TEST SCH ×4 (06:59→20:14)
[2019-07-25 08:00] VITALS: BP 108/87
[2019-07-25] MEDS: METHYLPREDNISOLONE SOD SUCC 40 MG/ML VIAL IV SCH (09:05)
[2019-07-25] MEDS: CITALOPRAM HYDROBROMIDE 10MG TABLET PO SCH (09:05)
[2019-07-25] MEDS: DIVALPROEX SODIUM 500MG ER TABLET PO SCH (09:05)
[2019-07-25] MEDS: MONTELUKAST SODIUM 10MG TABLET PO SCH (09:05)
[2019-07-25] MEDS: GUAIFENESIN 600MG ER TABLET PO SCH ×2 (09:05→20:07)
[2019-07-25] MEDS: ATORVASTATIN CALCIUM 10MG TABLET PO SCH (09:05)
[2019-07-25] MEDS: HYDROCODONE/ACETAMINOPHEN 5/325MG TABLET PO PRN ×4 (09:06→22:19)
[2019-07-25] MEDS: ENOXAPARIN 40MG/0.4ML SYR SUBCUT SCH (09:07)
[2019-07-25 12:00] VITALS: BP 95/65
[2019-07-25 16:00] VITALS: BP 136/79
[2019-07-25] MEDS ORDERED: MONT10TA21 MT (16:32)
[2019-07-25] MEDS ORDERED: ALBU18HF2 IH (16:32)
[2019-07-25] MEDS ORDERED: BUDE6HFA INH (16:32)
[2019-07-25] MEDS ORDERED: FLUT1DIS3 INH (16:32)
[2019-07-25] MEDS: QUETIAPINE FUMARATE 50MG TABLET PO SCH (20:07)
[2019-07-26] VITALS: BP 119/87
[2019-07-26] MEDS: THEOPHYLLINE ANHYDROUS 80 MG/15 ML 120ML PO SCH ×3 (00:07→12:48)
[2019-07-26] MEDS: IPRATROPIUM/ALBUTEROL 0.5-3(2.5)MG/3ML NEB HHN SCH ×2 (01:18→10:56)
[2019-07-26 04:00] VITALS: BP 130/67
[2019-07-26] MEDS: DILTIAZEM HCL 60MG TABLET PO SCH ×2 (06:06→15:24)
[2019-07-26] MEDS: INSULIN LISPRO 100 UNITS/ML SUBCUT SCH ×2 (06:07→12:57)
[2019-07-26] MEDS: BLOOD SUGAR DIAGNOSTIC STRIP TEST SCH ×2 (06:10→11:45)
[2019-07-26 08:00] VITALS: BP 160/85
[2019-07-26] MEDS: METHYLPREDNISOLONE SOD SUCC 40 MG/ML VIAL IV SCH (08:28)
[2019-07-26] MEDS: MONTELUKAST SODIUM 10MG TABLET PO SCH (08:28)
[2019-07-26] MEDS: CITALOPRAM HYDROBROMIDE 10MG TABLET PO SCH (08:28)
[2019-07-26] MEDS: GUAIFENESIN 600MG ER TABLET PO SCH (08:28)
[2019-07-26] MEDS: DIVALPROEX SODIUM 500MG ER TABLET PO SCH (08:28)
[2019-07-26] MEDS: ATORVASTATIN CALCIUM 10MG TABLET PO SCH (08:28)
[2019-07-26] MEDS ORDERED: ENOXAPARIN 30MG/0.3ML SYR SUBCUT SCH (09:00)
[2019-07-26] MEDS: HYDROCODONE/ACETAMINOPHEN 5/325MG TABLET PO PRN (09:47)
[2019-07-26] MEDS ORDERED: P20 MT (11:29)
[2019-07-26] MEDS ORDERED: DILT180C66 MT (11:29)
[2019-07-26] MEDS ORDERED: GUAI600T44 MT (11:29)
[2019-07-26 12:00] VITALS: BP 155/89
[2019-07-26 15:43] VITALS: BP 136/89
[2019-07-26 16:00] VITALS: BP 136/89
[2019-07-26] MEDS ORDERED: IPRATROPIUM/ALBUTEROL 0.5-3(2.5)MG/3ML NEB HHN SCH (22:00)
[2019-07-27] MEDS ORDERED: PREDNISONE 20MG TABLET PO SCH (09:00)
== END 2019-07-26 17:15 | disposition home or self-care (01) | DRG 816 ==
LOC: ER 16:33 → 7EST 18:59 → ENRESERV 20:12 → 7EST 07-16 01:18 → 5WST 07-17 23:02
PROVIDERS: ADMIT Family Medicine; ATTEND Internal Medicine
DX: T40.5X1A Poisoning by cocaine, accidental (unintentional), initial encounter (principal); J96.01 Acute respiratory failure with hypoxia; I50.43 Acute on chronic combined systolic (congestive) and diastolic (congestive) heart failure; E11.22 Type 2 diabetes mellitus with diabetic chronic kidney disease; E83.42 Hypomagnesemia; I08.2 Rheumatic disorders of both aortic and tricuspid valves; I13.0 Hypertensive heart and chronic kidney disease with heart failure and stage 1 through stage 4 chronic kidney disease, or unspecified chronic kidney disease; I42.0 Dilated cardiomyopathy; E11.65 Type 2 diabetes mellitus with hyperglycemia; E87.5 Hyperkalemia; J44.1 Chronic obstructive pulmonary disease with (acute) exacerbation; D72.810 Lymphocytopenia; D72.821 Monocytosis (symptomatic); E78.5 Hyperlipidemia, unspecified; F31.9 Bipolar disorder, unspecified; G40.909 Epilepsy, unspecified, not intractable, without status epilepticus; M19.90 Unspecified osteoarthritis, unspecified site; F17.210 Nicotine dependence, cigarettes, uncomplicated; I45.10 Unspecified right bundle-branch block; N39.0 Urinary tract infection, site not specified; N18.3 Chronic kidney disease, stage 3 (moderate); F14.129 Cocaine abuse with intoxication, unspecified; J20.9 Acute bronchitis, unspecified; Z20.828 Contact with and (suspected) exposure to other viral communicable diseases; D64.9 Anemia, unspecified; Z86.718 Personal history of other venous thrombosis and embolism; Z88.8 Allergy status to other drugs, medicaments and biological substances; Z86.711 Personal history of pulmonary embolism; Z79.84 Long term (current) use of oral hypoglycemic drugs; Z79.899 Other long term (current) drug therapy; Z83.3 Family history of diabetes mellitus; Z82.49 Family history of ischemic heart disease and other diseases of the circulatory system; Z79.51 Long term (current) use of inhaled steroids; F12.10 Cannabis abuse, uncomplicated; J44.0 Chronic obstructive pulmonary disease with (acute) lower respiratory infection; J68.0 Bronchitis and pneumonitis due to chemicals, gases, fumes and vapors; Y92.89 Other specified places as the place of occurrence of the external cause
CPT/HCPCS: 36415; 36600; 71045; 80048; 80053; 80061; 80305; 80320; 81003; 82375; 82550; 82553; 82805; 82962; 83036; 83605; 83615; 83735; 83880; 84132; 84145; 84443; 84484; 85025; 87420; 87635; 87804; 93005; 93306; 94640; 96365; 96368; 96375; 99291; J0456; J0696; J1650; J1815; J1940; J1956; J2060; J2920; J2930; J3105; J3475; J7060; G0480

== ENCOUNTER 2021-11-20 05:40 | Inpatient (IN) | payer OTHER ==
[~2021-11-20] VITALS: Ht 167.6 cm; Wt 75.7 kg
[~2021-11-20 05:40] MED LIST changes: +AMLO10TA80 MT; -BUDE6HFA IH; +BUDE6HFA INH; +DILT180C66 MT; +DIVA500T51 PO; +ESCI5TAB16 MT; -FLUT1DIS3 IH; +FLUT1DIS3 INH; +FURO40TA5 MT; +GUAI600T44 MT; +IBUP-2029 MT; +MONT-39 MT; +MONT10TA21 MT; +P20 MT; -TIOT18CA3 IH
[2021-11-20 08:24] LABS: MEAN CORPUSCULAR HEMOGLOBIN 22.6 pg (28.0-32.0); MEAN CORPUSCULAR VOLUME 75.3 fL (81.0-99.0); PLATELET 299 x1000/uL (130-400); RED BLOOD CELL COUNT 2.92 mill/uL (4.2-5.4); RED CELL DISTRIBUTION WIDTH 22.5 % (11.6-14.6)
[2021-11-20 08:31] LABS: CHLORIDE 109 mEq/L (98-107)
[2021-11-20 08:38] LABS: HEMOGLOBIN. 6.6 g/dL (12.0-16.0)
[2021-11-20] MEDS ORDERED: CALCIUM CHLORIDE 1GM/10ML SYR IV ONE (08:45)
[2021-11-20 08:53] LABS: CLARITY URINE CLEAR (CLEAR); COLOR URINE YELLOW (YELLOW); KETONES URINE NEGATIVE (NEGATIVE); LEUKOCYTE ESTERASE URINE NEGATIVE (NEGATIVE); NITRITE URINE POSITIVE (NEGATIVE); OCCULT BLOOD URINE NEGATIVE (NEGATIVE); PH URINE 5.5 (4.5-8.0); PROTEIN URINE 2+ (NEGATIVE); SPECIFIC GRAVITY URINE 1.011 (1.005-1.030); UROBILINOGEN URINE 0.2 E.U./dL (0.2-1.0)
[2021-11-20 09:28] LABS: *AMPHETAMINES SCREEN URINE PRESUMTIVE POSITIVE (NEGATIVE); *BARBITURATES SCREEN URINE NEGATIVE (NEGATIVE); *BENZODIAZEPINES SCREEN URINE NEGATIVE (NEGATIVE); *COCAINE SCREEN URINE PRESUMTIVE POSITIVE (NEGATIVE); CANNABINOID URINE SCREEN NEGATIVE (NEGATIVE); METHADONE URINE SCREEN NEGATIVE (NEGATIVE); OPIATES URINE SCREEN NEGATIVE (NEGATIVE); PHENCYCLIDINE URINE SCREEN NEGATIVE (NEGATIVE)
[2021-11-20] MEDS ORDERED: SODIUM CHLORIDE 0.9% 1,000 ML IV ONE (10:00)
[2021-11-20] MEDS ORDERED: DEXTROSE 50% WATER 50ML SYRINGE IV SCH (10:00)
[2021-11-20] MEDS ORDERED: INSULIN REGULAR (HUMULIN R) UD 100 UNITS/ML SYR IV SCH (10:00)
[2021-11-20 10:05] LABS: PLATELET ESTIMATE NORMAL
[2021-11-20] MEDS ORDERED: SODIUM BICARBONATE 8.4% 1 MEQ/ML 50ML SYR IV NR (16:00)
[2021-11-20 16:14] LABS: BG BASE EXCESS -9.6 mmol/L (-2.0-2.0); BG CARBOXYHEMOGLOBIN 0.6 % (0.5-1.5); BG DEOXYHEMOGLOBIN 11.2 % (0.0-5.0); BG FRACTION INSPIRED OXYGEN 21; BG HCO3 ACT 17.5 mmol/L (22.0-26.0); BG METHEMOGLOBIN 0.6 % (0.0-1.5); BG OXYGEN SATURATION 88.7 % (92.0-98.5); BG OXYHEMOGLOBIN 87.6 % (94.0-97.0); BG PCO2 43.9 mmHg (35.0-45.0); BG PH 7.218 (7.350-7.450); BG PO2 61.8 mmHg (75.0-100.0); BG SAMPLE SITE RIGHT RADIAL; BG TOTAL HEMOGLOBIN 8.1 g/dL (12.0-18.0); BG VENT MODE ROOM AIR
[2021-11-20] MEDS ORDERED: MAGNESIUM/ALUMINUM HYDROXIDE/SIMETHICONE 30ML UDC PO PRN (17:30)
[2021-11-20] MEDS ORDERED: CLONIDINE 0.1MG TABLET PO PRN (17:30)
[2021-11-20] MEDS ORDERED: DIPHENHYDRAMINE 50MG/ML VIAL IV PRN (17:30)
[2021-11-20] MEDS ORDERED: ASPIRIN 81MG TABLET PO NR (17:30)
[2021-11-20] MEDS ORDERED: ACETAMINOPHEN 325MG TABLET PO PRN (17:30)
[2021-11-20] MEDS ORDERED: NA PHOS,M-B/NA PHOS,DI-BA ENEMA 118ML PR PRN (17:30)
[2021-11-20] MEDS ORDERED: DOCUSATE SODIUM 100MG CAPSULE PO PRN (17:30)
[2021-11-20] MEDS ORDERED: SODIUM CHLORIDE 0.45% 1,000 ML IV SCH (17:30)
[2021-11-20] MEDS ORDERED: ONDANSETRON HCL 4MG/2ML INJ IV PRN (17:30)
[2021-11-20 18:32] LABS: CHLORIDE 113 mEq/L (98-107)
[2021-11-20 18:41] LABS: CREATINE KINASE 216 IU/L (26-192); CREATINE KINASE MB FRACTION 4.5 ng/mL (0.5-3.6)
[2021-11-20] MEDS: MORPHINE SULFATE 2 MG/ML CPJ (NOT FOR IM USE) IV PRN (18:46)
[2021-11-20 21:00] VITALS: BP 102/83
[2021-11-20] MEDS: HYDRALAZINE HCL 25MG TABLET PO SCH (22:00)
[2021-11-20] MEDS ORDERED: DEXTROSE 50% WATER 50ML SYRINGE IV PRN (22:30)
[2021-11-21] VITALS: BP 160/83
[2021-11-21 04:00] VITALS: BP 151/84
[2021-11-21] MEDS: HYDROCODONE/ACETAMINOPHEN 5/325MG TABLET PO PRN ×3 (04:22→18:08)
[2021-11-21] MEDS: BLOOD SUGAR DIAGNOSTIC STRIP TEST SCH ×4 (06:41→21:14)
[2021-11-21] MEDS: HYDRALAZINE HCL 25MG TABLET PO SCH ×3 (06:41→21:18)
[2021-11-21] MEDS: INSULIN LISPRO 100 UNITS/ML SUBCUT SCH ×4 (07:48→21:00)
[2021-11-21 08:00] VITALS: BP 134/75
[2021-11-21] MEDS: MORPHINE SULFATE 2 MG/ML CPJ (NOT FOR IM USE) IV PRN (08:51)
[2021-11-21] MEDS: GUAIFENESIN 200MG/10ML SUGAR FREE UDC PO PRN ×3 (09:05→18:07)
[2021-11-21] MEDS: IPRATROPIUM/ALBUTEROL 0.5-3(2.5)MG/3ML NEB NEB PRN (09:10)
[2021-11-21 10:31] LABS: HEMATOCRIT. 24.9 % (36.0-48.0); HEMOGLOBIN. 7.4 g/dL (12.0-16.0); MEAN CORPUSCULAR HEMOGLOBIN 22.9 pg (28.0-32.0); MEAN CORPUSCULAR VOLUME 76.9 fL (81.0-99.0); MEAN PLATELET VOLUME 8.9 fl (7.4-10.4); PLATELET 245 x1000/uL (130-400); RED BLOOD CELL COUNT 3.23 mill/uL (4.2-5.4)
[2021-11-21 10:32] LABS: CHLORIDE 117 mEq/L (98-107)
[2021-11-21 12:00] VITALS: BP 130/70
[2021-11-21 14:14] LABS: PLATELET ESTIMATE NORMAL
[2021-11-21 15:28] VITALS: BP 120/66
[2021-11-21] MEDS ORDERED: DILTIAZEM HCL 180MG CAPSULE CD 24HR PO SCH (17:30)
[2021-11-21] MEDS ORDERED: LORAZEPAM 0.5MG TABLET PO PRN (17:30)
[2021-11-21] MEDS: CITALOPRAM HYDROBROMIDE 10MG TABLET PO SCH (18:07)
[2021-11-21] MEDS: MONTELUKAST SODIUM 10MG TABLET PO SCH (18:07)
[2021-11-21] MEDS: DIVALPROEX SODIUM 500MG ER TABLET PO SCH (18:07)
[2021-11-21] MEDS: ATORVASTATIN CALCIUM 10MG TABLET PO SCH (18:07)
[2021-11-21] MEDS: AMLODIPINE 10MG TABLET PO SCH (18:08)
[2021-11-21 20:00] VITALS: BP 141/65
[2021-11-21] MEDS ORDERED: QUETIAPINE FUMARATE 50MG TABLET PO SCH (21:00)
[2021-11-21] MEDS ORDERED: NALOXONE HCL 0.4MG/ML VIAL IV PRN (21:00)
[2021-11-22] VITALS: BP 128/75
[2021-11-22] MEDS: IPRATROPIUM/ALBUTEROL 0.5-3(2.5)MG/3ML NEB NEB PRN (00:46)
[2021-11-22 04:00] VITALS: BP 124/68
[2021-11-22] MEDS: HYDRALAZINE HCL 25MG TABLET PO SCH ×2 (05:44→13:31)
[2021-11-22] MEDS: GUAIFENESIN 200MG/10ML SUGAR FREE UDC PO PRN (06:08)
[2021-11-22] MEDS: BLOOD SUGAR DIAGNOSTIC STRIP TEST SCH ×3 (06:08→17:13)
[2021-11-22] MEDS: INSULIN LISPRO 100 UNITS/ML SUBCUT SCH ×3 (07:27→17:13)
[2021-11-22 08:00] VITALS: BP 129/70
[2021-11-22] MEDS: DIVALPROEX SODIUM 500MG ER TABLET PO SCH (08:29)
[2021-11-22] MEDS: ATORVASTATIN CALCIUM 10MG TABLET PO SCH (08:30)
[2021-11-22] MEDS: AMLODIPINE 10MG TABLET PO SCH (08:30)
[2021-11-22] MEDS: CITALOPRAM HYDROBROMIDE 10MG TABLET PO SCH (08:30)
[2021-11-22] MEDS ORDERED: SODIUM POLYSTYRENE SULFONATE 15 G/60 ML BOT PO SCH (10:00)
[2021-11-22 12:00] VITALS: BP 124/70
[2021-11-22 16:00] VITALS: BP 150/87
[2021-11-22] MEDS: MONTELUKAST SODIUM 10MG TABLET PO SCH (17:23)
[2021-11-22 17:37] VITALS: BP 150/87
[2021-11-22 17:39] LABS: HEPATITIS B SURFACE ANTIGEN NEGATIVE
== END 2021-11-22 20:10 | disposition home or self-care (01) | DRG 52 ==
LOC: ER 05:46 → EDBEDREQ 15:35 → ENRESERV 18:44 → ER 21:15 → 6WST 22:07
PROVIDERS: ADMIT Internal Medicine; ATTEND Internal Medicine
PROC: 30233N1 Transfusion of Nonautologous Red Blood Cells into Peripheral Vein, Percutaneous Approach (ICD-10-PCS; principal; 2021-11-20)
DX: G93.41 Metabolic encephalopathy (principal); N17.0 Acute kidney failure with tubular necrosis; E87.2 Acidosis; D63.1 Anemia in chronic kidney disease; I50.9 Heart failure, unspecified; I13.0 Hypertensive heart and chronic kidney disease with heart failure and stage 1 through stage 4 chronic kidney disease, or unspecified chronic kidney disease; E11.22 Type 2 diabetes mellitus with diabetic chronic kidney disease; E87.5 Hyperkalemia; Z20.822 Contact with and (suspected) exposure to COVID-19; F14.10 Cocaine abuse, uncomplicated; F31.9 Bipolar disorder, unspecified; F20.9 Schizophrenia, unspecified; F15.10 Other stimulant abuse, uncomplicated; J44.9 Chronic obstructive pulmonary disease, unspecified; G40.909 Epilepsy, unspecified, not intractable, without status epilepticus; N18.9 Chronic kidney disease, unspecified; F10.229 Alcohol dependence with intoxication, unspecified; E78.5 Hyperlipidemia, unspecified; Z79.51 Long term (current) use of inhaled steroids; Z79.899 Other long term (current) drug therapy
CPT/HCPCS: 36415; 36600; 71045; 76770; 80048; 80053; 80305; 81003; 82375; 82550; 82553; 82805; 82962; 83036; 83735; 83880; 84132; 84484; 85025; 86803; 86850; 86900; 86920; 87340; 87426; 93005; 93306; 94640; 94664; 99291; C9803; J1200; J1815; J2270; J3490; P9016